=== PATIENT | female | born 2000 | race Native Hawaiian/Other Pacific Islander ===

== ENCOUNTER 2024-07-10 13:25 | Outpatient (REF) | payer MEDICAID, SELFPAY ==
[2024-07-10 18:13] LABS: Bacterial Vaginosis PCR NEGATIVE (Negative); Candida Group PCR DETECTED (Not Detect); Candida glab krusei PCR NOT DETECTED (Not Detect); Trichomonas vaginalis PCR NOT DETECTED (Not Detect)
[2024-07-11 02:44] LABS: CT PCR NOT DETECTED (Not Detect.); NG PCR NOT DETECTED (Not Detect.)
== END 2024-07-10 13:26 | disposition home or self-care (01) ==
LOC: HO.HHCLNP 13:25
PROVIDERS: Visit Provider Family Medicine
DX: N76.0 Acute vaginitis (principal); B96.89 Other specified bacterial agents as the cause of diseases classified elsewhere
CPT/HCPCS: 0352U; 87491; 87591

== ENCOUNTER 2024-07-16 16:09 | Outpatient (REF) | payer MEDICAID, SELFPAY | END 2024-07-16 16:10 | disposition home or self-care (01) | LOC: HO.LNP 16:09 | PROVIDERS: Visit Provider Advanced Practice Midwife | DX: Z13.89 Encounter for screening for other disorder (principal) ==

== ENCOUNTER 2024-08-05 14:59 | Outpatient (REF) | payer MEDICAID, SELFPAY ==
[2024-08-05 16:22] LABS: MANUAL DIFF FLAG NO
[2024-08-05 16:36] LABS: Basophils Absolute Auto 0.1 X10*3/uL (0.0-0.2); Basophils Percent Auto 0.7 % (0-2); Eosinophils Absolute Auto 0.2 X10*3/uL (0.0-0.4); Eosinophils Percent Auto 2.3 % (0-4); Hematocrit 39.8 % (37.0-47.0); Hemoglobin 13.2 g/dl (12.0-16.0); Imm Gran Abs Auto 0.03 X10*3/uL (0.00-0.03); Imm Gran Pct Auto 0.3 % (0.0-0.4); Lymphocytes Absolute Auto 2.8 X10*3/uL (1.2-4.9); Lymphocytes Percent Auto 31.8 % (20-40); Mean Corpuscular HGB Conc 33.2 g/dl (31.0-35.0); Mean Corpuscular Hemoglobin 27.8 pg (27.0-33.0); Mean Corpuscular Volume 83.8 fL (80.0-98.0); Mean Platelet Volume 11.3 fL (9.4-12.3); Monocytes Absolute Auto 0.7 X10*3/uL (0.1-1.2); Monocytes Percent Auto 7.7 % (2-11); Neutrophils Percent Auto 57.2 % (45-73); Platelet Count 265 X10*3/uL (160-400); Red Blood Count 4.75 X10*6/uL (4.20-5.50); Red Cell Distribution Width 14.2 % (11.0-16.0); White Blood Count 8.8 X10*3/uL (4.8-10.8)
[2024-08-05 16:45] LABS: Alanine Aminotransferase 23 U/L (0-31); Albumin Level 4.4 g/dL (3.5-5.0); Alkaline Phosphatase 95 U/L (39-117); Anion Gap 10 (12-20); Aspartate Amino Transferase 37 U/L (5-31); Bilirubin Total 0.3 mg/dL (0.0-1.0); Blood Urea Nitrogen 10 mg/dL (9-16); Carbon Dioxide 22 mmol/L (22-29); Chloride 108 mmol/L (96-108); Estimated Glomerular Filt Rate > 60; Glucose Random 101 mg/dL (60-115); Potassium 3.2 mmol/L (3.3-5.1); Sodium 137 mmol/L (135-145); Total Protein 7.7 g/dL (6.5-8.0)
[2024-08-05 16:54] LABS: Estimated Average Glucose 103 mg/dL; Hemoglobin A1C 110.2028 umol/L; Hemoglobin A1c % 5.2 % (<6.0); Total Hemoglobin (HGBA1C) 3310.8989 umol/L
[2024-08-06 08:27] LABS: HIV AB/AG Nonreactive (Nonreactive); HIV Num 1 0.08 S/CO (0.00-0.99); ~HepC Num1 0.14 S/CO (0.00-0.79); ~Hepatitis C Antibody Nonreactive (Nonreactive)
[2024-08-06 08:34] LABS: Syphilis Screen Nonreactive (Nonreactive)
== END 2024-08-05 15:00 | disposition home or self-care (01) ==
LOC: HO.HHCL 14:59
PROVIDERS: Advanced Practice Midwife; Visit Provider Nurse Practitioner Family
DX: Z00.00 Encounter for general adult medical examination without abnormal findings (principal); Z11.4 Encounter for screening for human immunodeficiency virus [HIV]; Z11.3 Encounter for screening for infections with a predominantly sexual mode of transmission
CPT/HCPCS: 36415; 80053; 83036; 85025; 86780; 86803; 87389

== ENCOUNTER 2024-11-03 13:55 | Outpatient (REF) | payer MEDICAID, SELFPAY ==
--- NOTE | ~2024-11-03 | XR_ITS ---
EXAMINATION: XR ANKLE, RIGHT CLINICAL INFORMATION: FELL COMPARISON: None available. TECHNIQUE: AP, lateral, and mortise views of the right ankle. FINDINGS: No fracture, dislocation, or suspicious bone lesion. Normal bone mineralization. Normal alignment. Joint spaces are preserved. Mortise is intact. The talar dome is normal. Subtalar joints are normal. Calcaneus is normal. There is a probable ankle joint effusion. Mild medial soft tissue swelling. XR/XR ankle RT min 3V IMPRESSION: 1. No fracture or dislocation. 2. Probable ankle joint effusion. Medial soft tissue swelling. Electronically signed by: Christian Rodriguez MD 11/03/2024 03:06 PM ALONDRA HESETR
--- OUTSIDE RECORDS SUMMARY | 2024-11-03 16:01 | XMS_ITS | Encounter Summary ---
Author Organization [employer] Address [address] [facility] 7[address] [place] [address] Care Team Providers Care Sports Agent Name Role Phone BoubacarYvonne del rosario RAJAN Primary Care Provider [phone] Reason for Visit * Reason Comments Fall Down the stairs arou nd 7am, has some swelling and painful to the touch Encounter Details Date Type Department Care Team ([facility] st Contact Info) Description 11/03/2024 2:30 PM EST Office Visit [facility] [address], [place] [phone] Inés Schaffer MD [address] [place], [place] [phone] Dietary counseling; Exercise counseling; Overweight; Right foot pain; Acute right ankle pain; Vaginal itching Social History Tobacco Use Types Packs/Day Years Used Date Smoking Tobacco: Never Smokeless Tobacco: Never Tobacco Cessation:Counseling Given: Not Answered Depression Answer Date Recorded Patient Health Questionnaire-9 Score 4 08/05/2024 Patient Health Questionnaire-9 Score 4 08/05/2024 Last PHQ-9: Questionnaire Data Not on file 1 10/05/2023 Housing Stability Answer Date Recorded What is your housing situation today? I do not have housing (Staying with others, in a hotel, in a retirement, living outside on the street, on a beach, in a car, or in a park 07/29/[address] you li ve. Do you have problems with any of the following? None of the above 07/29/2024 Food Insecurity Answer Date Recorded Within the past 12 months, y ou worried that your food would run out before you got money to buy more: Often true 07/29/2024 Within the past 12 months,th e food you bought just didn't last and you didn't have enough money to get more: Often true Transportation Answer Date Recorded In the past 12 months, has l ack of transportation kept you from medical appts, meetings, work or from getting things needed for daily living? Yes, it has kept me from medical appointments or getting medications. 07/29/2024 Utilities Answer Date Recorded In the past 12 months, has t he electric, gas, oil or water company threatened to shut off services in your home? No 07/29/2024 Depression Answer Date Recorded Patient Health Questionnaire-2 Score 1 08/05/2024 Internet Access Answer Date Recorded Internet Access Q1 Yes 07/29/2024 Internet Access Q2 Not on file 07/29/2024 Comments No Sex and Gender Information Value Date Recorded Sex Assigned at Female 05/19/2024 10:55 AM EDT Legal Sex Female 10:17 AM EDT Gender Identity Female 05/19/2024 10:55 AM EDT Sexual Orientation Straight 05/19/2024 10 :55 AM EDT documented as of this encounter Last Filed Vital Signs Vital Sign Reading Time Taken Comments Blood Pressure 103/59 11/03/2024 1:29 PM EST Pulse 92 11/03/2024 1:29 PM EST Temperature 36.4 ??C (97.5 ??F) 11/03/2024 1:29 PM ES T Respiratory Rate 18 11/03/2024 1:29 PM EST Oxygen Saturation 100% 11/03/2024 1:29 PM EST Inhaled Oxygen Concentration - - Weight 62.1 kg (137 lb) 11/03/2024 1:29 PM EST Height 150 cm (4' 11.06 ) 11/03/2024 1:29 PM EST Body Mass Index 27.62 11/03/2024 1:29 PM EST documented in this encounter Plan of Treatment Upcoming Encounters Date Type Department Care Team (Late st Contact Info) Description 11/06/2024 3:30 PM EST Clinical Support [facility] [address] [place] [address] Scheduled Orders Name Type Priority Associated Diagnoses Orde r Schedule XR Ankle 3+ Views Right Imaging Routine Acute right ankle pain Expected: 11/03/2024, Expires: 11/03/2025 documented as of this encounter Procedures Procedure Name Priority Date/Time Associated Diagnosis Comments POCT URINALYSIS DIPSTICK Routine 11/03/2024 1:59 PM EST Vaginal itching documented in this encounter Results * (ABNORMAL) POCT Urinalysis (11/03/2024 1:59 PM EST) Color, UA Yellow Clarity, UA Clear Glucose, UA Negative Bilirubin, UA Negative Ketones, UA Negative Spec Grav, UA 1.015 Blood, UA Positive(A) Negative, None Detected Comment:trace-lysed pH, UA 6.5 Protein, UA Negative Urobilinogen, UA 0.2 Leukocytes, UA Trace Negative, Rare, Trace Nitrite, UA Negative Negative, None Detected Appearance, UA clear QC Media Lot # [id number] Lot# Expiration Date Urine 11/03/2024 1:59 PM EST Inés Schaffer MD POINT OF CARE TEST ENTER/EDIT ORDERABLES Final Result documented in this encounter Visit Diagnoses Diagnosis Dietary counseling Dietary surveillance and counseling Exercise counseling Overweight Right foot pain Pain in soft tissues of limb Acute right ankle pain Vaginal itching Pruritus of genital organs documented in this encounter Additional Health Concerns Assessment Noted Time PHQ-9 Depression Total Score: 4 08/05/20 2:52 PM EST documented as of this encounter Care Teams Sports Agent Relationship Specialty Start Date End Date Yvonne Tovar NP [address] [place] [phone] PCP - General Family Medicine 08/05/24 documented as of this encounter
--- OUTSIDE RECORDS SUMMARY | 2024-11-03 16:01 | XMS_ITS | Clinical Summary ---
Author Organization [employer] Address [address] [place] [address] 7[address] [place] [address] Care Team Providers Care Certified Coder Name Role Phone BoubacarYvonne del rosario RAJAN Primary Care Provider [phone] Allergies No known active allergies Medications medroxyPROGESTERo ne (Depo-Provera) 150 MG/ML injectionIndicati ons:Encounter for Depo-Provera contraception Inject 1 mL (150 mg) into the muscle every 3 (three) months. 1 mL 3 07/16/20 24 025 Active fluconazole (Diflucan) 150 MG tablet Take 1 tablet (150 mg) by mouth 1 (one) time per week for 14 days. 2 tablet 11/03/19 25 025 Active ibuprofen 800 MG tablet Take 1 tablet (800 mg) by mouth every 8 (eight) hours if needed for mild pain for up to 10 days. 30 tablet 11/03/19 25 025 Active fluconazole (Diflucan) 150 MG tablet Take 1 tablet (150 mg) by mouth 1 (one) time per week for 14 days. 2 tablet 11/03/19 25 025 Discontinued Active Problems Problem Noted Date Diagnosed Date Right foot pain 11/03/2024 Healthcare maintenance 08/05/2024 Assessment & Plan (08/05/2024 8:28 PM EST): Healthy 24 year old without any acute complaints Continue depo Pap scheduled for 2023 Anticipatory guidance reviewed Immunizations offered, pt declines Encounter for Depo-Provera contraception 024 Assessment & Plan (07/16/2024 10:51 AM EST): Patient happy with method and would like to continue Urine hcg negative today Educated patient on benefits and risks including risk of osteoporosis and meningioma with fci use. As well as side effects such as weight gain and period irregularity. Pt due for next shot in 3 months (10/15/24 will be 13 weeks) Encounter for screening exam ination for sexually transmitted disease 07/16/2024 Assessment & Plan (07/16/2024 10:52 AM EST): Pt will perform self swabs today for G/CT Pt will complete ordered bloodwork Encounters Date Type Department Care Team Description 11/03/2024 2:30 PM EST Office Visit [address] [address] Inés Schaffer MD Dietary counseling; Exercise counseling; Overweight; Right foot pain; Acute right ankle pain; Vaginal itching 11/03/[address] [address] Lizeth Jones RN 11/03/2024 Orders Only [address] [address] Inés Schaffer MD 10/03/[address] [address] Yvonne Tovar NP No Show 08/06/[address] [address] Mckinley Rinaldi [place] Lab Results 08/05/2024 2:00 PM EST Office Visit [address] [address] Yvonne Tovar NP Healthcare maintenance (Primary Dx) 08/04/[address] [address] Livier Santos MA Chart Prep from Last 3 Months Social History Tobacco Use Types Packs/Day Years [...] with others, in a hotel, in a [facility], living outside on the street, on a [...] Orientation Straight 05/19/2024 10 :55 AM EDT Last Filed Vital Signs Vital Sign Reading [...] Mass Index 27.62 11/03/2024 1:29 PM EST Plan of Treatment Upcoming Encounters Date Type Department Care Team (Late st Contact Info) Description 11/06/2024 3:30 PM EST Clinical Support [address] [address] Health Maintenance Due Date Last Done Comments HPV Vaccines (1 - 3-dose series) 01/14/2015 DTaP/Tdap/Td Vaccines (1 - Tdap) 01/14/2019 Hepatitis B Vaccines (1 of 3 - 19+ 3-dose series) 01/14/2019 Pap Smear 01/14/2021 COVID-19 Vaccine (1 - 2023-2 5 season) 2024 Influenza Vaccine (#1) 2024 Family Planning (PISQ) 07/16/2025 07/16/2024 SDOH Screening 07/29/2025 07/29/2024 Alcohol/Substance Use Screening 08/05/2025 08/05/2024 Depression Screening 08/05/2025 08/05/2024, 08/05/2024 Tobacco Screening 11/03/2025 11/03/2024 Zoster Vaccines (1 of 2) 01/14/2050 RSV Patients and Patients Aged 60 years or older (1 - 1-dose 75+ series) 01/14/2075 HIV Screening Completed 08/05/2024 Hepatitis C Screening Completed 08/05/2024 HIB Vaccines Aged Out No longer eligi ble based on patient's age to complete this topic Hepatitis A Vaccines Aged Out No long er eligible based on patient's age to complete this topic IPV Vaccines Aged Out No longer eligi ble based on patient's age to complete this topic Meningococcal Vaccine Aged Out No jose gold eligible based on patient's age to complete this topic Pneumococcal Vaccine: Pediatrics (0 to 5 Years) and At-Risk Patients (6 to 49) Years) Aged Out No longer eligible b ased on patient's age to complete this topic RSV under 20 months Aged Out No longe r eligible based on patient's age to complete this topic Rotavirus Vaccines Aged Out No longer eligible based on patient's age to complete this topic Procedures Procedure Name Priority Date/Time Associated Diagnosis Comments POCT URINALYSIS DIPSTICK Routine 11/03/2024 1:59 PM EST Vaginal itching XR ANKLE 3+ VIEWS RIGHT Routine 11/03/2024 1:57 PM EST CBC WITH AUTO DIFFERENTIAL Routine 08/05/2024 3:01 PM EST Healthcare maintenance HEMOGLOBIN A1C Routine 08/05/2024 3:01 PM EST Healthcare maintenance COMPREHENSIVE METABOLIC PANEL Routine 08/05/2024 3:01 PM EST Healthcare maintenance HEPATITIS C AB W/REFL TO HCV RNA, QN, PCR Routine 08/05/2024 3:01 PM EST Encounter for screening examination for sexually transmitted disease SYPHILIS SCREEN Routine 08/05/2024 3:01 PM EST Encounter for screening examination for sexually transmitted disease HIV 1/2 ANTIGEN/ANTIBODY, FOURTH GENERATION W/RFL Routine 08/05/2024 3:01 PM EST Encounter for screening examination for sexually transmitted disease from Last 3 Months Results * (ABNORMAL) POCT Urinalysis (11/03/2024 1:59 [...] Media Lot # [id number] Lot# Expiration Date [id number] Urine 11/03/2024 1:59 PM EST Inés Schaffer MD POINT OF CARE TEST ENTER/EDIT ORDERABLES Final Result * XR Ankle 3+ Views Right (11/03/2024 1:57 PM EST) Anatomical Region Laterality Modality Lower Extremities, Ankle Right Radiogr aphic Imaging 11/03/2024 1:57 PM EST Narrative 11/03/2024 3:09 PM EST ?[facility] ?[address] ?[place] [address] ?XRay Report ? Signed ? Patient: Yautibug Suad,Sheila ?MR#: [id number] ?? [id number] ? : 2000 ?Acct:[id number] ? Age/Sex: 24 / F ?ADM Date: 11/03/24 ? Loc: HO.HHCX ? Attending Dr: Inés Schaffer MD ? Ordering Physician: Inés Schaffer ?? Date of Service: 11/03/24 ?? Procedure(s): XR ankle RT min 3V ?? Accession Number(s): [id number] ? cc: Inés Schaffer ? EXAMINATION: ?? XR ANKLE, RIGHT ? CLINICAL INFORMATION: ?? FELL ? COMPARISON: ?? None available. ? TECHNIQUE: ?? AP, lateral, and mortise views of the right ankle. ? FINDINGS: ?? No fracture, dislocation, or suspicious bone lesion. Normal bone ?? mineralization. ?? Normal alignment. ?? Joint spaces are preserved. Mortise is intact. The talar dome is normal. ?? Subtalar joints are normal. Calcaneus is normal. ? There is a probable ankle joint effusion. ?? Mild medial soft tissue swelling. ? XR/XR ankle RT min 3V ?? IMPRESSION: ?? 1. No fracture or dislocation. ?? 2. Probable ankle joint effusion. Medial soft tissue swelling. ? Electronically signed by: ??Christian Rodriguez MD ??11/03/2024 03:06 PM EST RP ?? Workstation: [id number] ? Dictated By: ?Christian Rodriguez MD ? Signed By: ?<Electronically signed by Christian Rodriguez MD in OV> ?11/03/24 1506 ? DD/ 1357 ? TD/TT: 11/03/24 1400 ? Rug Clipper: ? Procedure Note Miracle Williamson - 11/03/[address] [address] XRay Report Signed Patient: Grabiel Arroyochai#: [id number] : 2000Acct:[id number] Age/Sex: 24 / M Date: 11/03/24 Loc: HO.HHCX Attending Dr: Inés Schaffer MD Ordering Physician: Inés Schaffer Date of Service: 11/03/24 Procedure(s): XR ankle RT min 3V Accession Number(s): [id number] cc: Inés Schaffer EXAMINATION: XR ANKLE, RIGHT CLINICAL INFORMATION: FELL COMPARISON: None available. TECHNIQUE: AP, lateral, and mortise views of the right ankle. FINDINGS: No fracture, dislocation, or suspicious bone lesion. Normal bone mineralization. Normal alignment. Joint spaces are preserved. Mortise is intact. The talar dome is normal. Subtalar joints are normal. Calcaneus is normal. There is a probable ankle joint effusion. Mild medial soft tissue swelling. XR/XR ankle RT min 3V IMPRESSION: 1. No fracture or dislocation. 2. Probable ankle joint effusion. Medial soft tissue swelling. Electronically signed by: Christian Rodriguez MD 11/03/2024 03:06 PM EST Dictated By: hCristian Rodriguez MD Signed By: <Electronically signed by Christian Rodriguez MD in OV> 11/03/24 1506 DD/ 1357 TD/TT: 11/03/24 1400 Rug Clipper: Inés Schaffer MD IMG XR PROCEDURES Final Result * Syphilis Screen (08/05/2024 3:01 PM EST) Pathologist [facility] Syphilis Screen Nonreactive Nonreactive [facility] Blood Venous blood specimen / Unknown 08/05/2024 3:01 PM EST 08/05/2024 4:09 PM EST Stephanie ASHLEY LAB BLOOD ORDERABLES Dana l Result [facility] [address] [place] [phone] * CBC auto differential (08/05/2024 3:01 PM EST) White Blood Count 8.8 4.8 - 10.8 X10*3/uL [facility] Red Blood Count 4.75 4.20 - 5.50 X10*6/uL [facility] Hemoglobin 13.2 12.0 - 16.0 g/dl [facility] Hematocrit 39.8 37.0 - 47.0 % [facility] Mean Corpuscular Volume 83.8 80.0 - 98.0 fL [facility] Mean Corpuscular Hemoglobin 27.8 27.0 - 33.0 pg [facility] Mean Corpuscular HGB Conc 33.2 31.0 - 35.0 g/dl [facility] Red Cell Distribution Width 14.2 11.0 - 16.0 % [facility] Platelet Count 265 160 - 400 X10*3/uL [facility] Mean Platelet Volume 11.3 9.4 - 12.3 fL [facility] Neutrophils Percent Auto 57.2 45 - 73 % [facility] Imm Gran Pct Auto 0.3 0.0 - 0.4 % [facility] Lymphocytes Percent Auto 31.8 20 - 40 % [facility] Monocytes Percent Auto 7.7 2 - 11 % [facility] Eosinophils Percent Auto 2.3 0 - 4 % [facility] Basophils Percent Auto 0.7 0 - 2 % [facility] NRBC Pct Auto 0.0 0.0 - 0.2 /100WBC [facility] Neutrophils Absolute Auto 5.0 2.0 - 8.3 x10*3/uL [facility] Imm Gran Abs Auto 0.03 0.00 - 0.03 X10*3/uL [facility] Lymphocytes Absolute Auto 2.8 1.2 - 4.9 X10*3/uL [facility] Monocytes Absolute Auto 0.7 0.1 - 1.2 X10*3/uL [facility] Eosinophils Absolute Auto 0.2 0.0 - 0.4 X10*3/uL [facility] Basophils Absolute Auto 0.1 0.0 - 0.2 X10*3/uL [facility] NRBC Abs Auto 0.000 0.0 - 0.012 X10*3/uL [facility] Blood Venous blood specimen / Unknown 08/05/2024 3:01 PM EST 08/05/2024 4:09 PM EST us Yvonne Tovar MANAGER BABY LAB BLOOD ORDERABLES Final Resul t Performing Organization Address City/[facility]/ZIP Co de Phone Number [facility] [address] [place] [phone] * Hepatitis C Antibody with Reflex to HCV, RNA, Quantitative, Real-Time PCR (08/05/2024 3:01 PM EST) Hepatitis C Antibody Nonreactive Nonreactive [facility] Comment:Antibodies to HCV no t detected; does not exclude early acuteHCV infection. Blood Venous blood specimen / Unknown 08/05/2024 3:01 PM EST 08/05/2024 4:09 PM EST us Stephanie Ellsworth [facility] LAB BLOOD ORDERABLES Dana l Result Performing Organization Address [facility]/ZIP Co de Phone Number [facility] [address] [place] [phone] * HIV-1/2 Antigen and Antibodies, Fourth Generation, with Reflexes (08/05/2024 3:01 PM EST) HIV AB/AG Nonreactive Nonreactive [facility] Comment:HIV-1 p24 Ag and/or HIV-1/HIV-2 Ab not detected.A test result that is nonreactive does not exclude thepossibility of exposure to or infection with HIV-1 and/orHIV-2. Nonreactive results in this assay for individualswith prior exposure to HIV-1 and/or HIV-2 may be due toantigen and antibody levels that are below the limit ofdetection of this assay.The [employer] HIV Ag/Ab Combo assay result andsupplemental assay results should be interpreted inconjunction with the patient's clinical presentation,history and other laboratory results. If the results areinconsistent with clinical evidence, additional testing issuggested to confirm the result. Blood Venous blood specimen / Unknown 08/05/2024 3:01 PM EST 08/05/2024 4:09 PM EST us Stephanie Mckeonpaulina CNM LAB BLOOD ORDERABLES Dana l Result Performing Organization Address [facility] Co de Phone Number [facility] [address] [place] [phone] * Hemoglobin A1c (08/05/2024 3:01 PM EST) Hemoglobin A1c 5.2 <6.0 % [facility] Comment:Hemoglobin A1C Refer ence Range Adults: 4.8 - 6.0 % Non diabetic: < 6.0 % Goal: < 7.0 %Additional Action Suggested: > 8.0 %Note: Hemoglobin A1c results are invalid for patients with abnormal amounts of HbF. Blood transfusions may impact the HbA1c concentration in the patient sample. Estimated Average Glucose 103 mg/dL [facility] Comment:eAG = Estimated ave rage glucose which is %A1C expressed asaverage glucose, using the formula of the H5A-QdpwekhWimvdxh Glucose study (ADAG), Diabetes Care, Vol.31,#8,Apr. 2007 Blood Venous blood specimen / Unknown 08/05/2024 3:01 PM EST 08/05/2024 4:09 PM EST us Yvonne Tovar MANAGER BABY LAB BLOOD ORDERABLES Final Resul t Performing Organization Address [facility] Co de Phone Number [facility] [address] [place] [phone] * (ABNORMAL) Comprehensive Metabolic Panel (08/05/2024 3:01 PM EST) Sodium 137 135 - 145 mmol/L [facility] Potassium 3.2(L) 3.3 - 5.1 mmol/L [facility] Chloride 108 96 - 108 mmol/L [facility] Carbon Dioxide 22 22 - 29 mmol/L [facility] Anion Gap 10(L) 12 - 20 [facility] Urea Nitrogen (BUN) 10 9 - 16 mg/dL [facility] Creatinine, Serum 0.65 0.5 - 1.4 mg/dL [facility] Estimated Glomerular Filt Rate >60 [facility] Comment:Chronic Kidney Disea se: Estimated GFR < 60 mL/min/1.19r5Sdcsig Kidney Disease: Estimated GFR < 15 mL/min/1.73m2 Glucose 101 60 - 115 mg/dL [facility] Calcium 9.0 8.4 - 10.2 mg/dL [facility] Bilirubin, Total 0.3 0.0 - 1.0 mg/dL [facility] Aspartate Amino Transferase 37(H) 5 - 31 U/L [facility] Alanine Aminotransferase 23 0 - 31 U/L [facility] Total Protein 7.7 6.5 - 8.0 g/dL [facility] Albumin Level 4.4 3.5 - 5.0 g/dL [facility] Alkaline Phosphatase 95 39 - 117 U/L [facility] Blood Venous blood specimen / Unknown 08/05/2024 3:01 PM EST 08/05/2024 4:09 PM EST us Yvonne Tovar NP LAB BLOOD ORDERABLES Final Resul t [facility] [address] [place] [address] [phone] from Last 3 Months Insurance [employer] FULL Care Teams Certified Coder Relationship Specialty Start Date End Date Yvonne Tovar NP [address] [place] [phone] PCP - General Family Medicine 08/05/24
--- OUTSIDE RECORDS SUMMARY | 2024-11-03 16:01 | XMS_ITS | Encounter Summary ---
Author Organization [employer] Address [address] [facility] 7[address] [place] [address] Care Team Providers Care Flanger Name Role Phone BoubacarYvonne del rsoario RAJAN Primary Care Provider [phone] Encounter Details Date Type Department Care Team (Late st Contact Info) Description 11/03/2024 Orders Only [facility] [address], [place] [phone] Inés Schaffer MD [address] [place], [place] [phone] Social History Tobacco Use Types Packs/Day Years Used Date Smoking Tobacco: Never Smokeless Tobacco: Never Depression Answer Date Recorded Patient Health Questionnaire-9 Score 4 08/05/2024 Patient Health Questionnaire-9 Score 4 08/05/2024 Last PHQ-9: Questionnaire Data Not on file 1 10/05/2023 Housing Stability Answer Date Recorded What is your housing situation today? I do not have housing (Staying with others, in a hotel, in a correction, living outside on the street, on a [...] AM EDT documented as of this encounter Plan of Treatment Upcoming Encounters Date Type Department Care Team (Late st Contact Info) Description 11/06/2024 3:30 PM EST Clinical Support [facility] [address] [place] [address] documented as of this encounter Procedures Procedure Name Priority Date/Time Associated Diagnosis Comments XR ANKLE 3+ VIEWS RIGHT Routine 11/03/2024 1:57 PM EST documented in this encounter Results * XR Ankle 3+ Views Right (11/03/2024 1:57 PM EST) Anatomical Region Laterality Modality Lower Extremities, Ankle Right Radiogr aphic Imaging 11/03/2024 1:57 PM EST Narrative 11/03/2024 3:09 PM EST ?[facility] ?[address] [facility] ?[place] [address] ?XRay Report ? Signed ? Patient: Yautibug Suad,Sheila ?MR#: [id number] ?? [id number] ? : 2000 ?Acct:[id number] ? Age/Sex: 24 / F ?ADM Date: 02/24/25 ? Loc: HO.HHCX ? Attending Dr: Inés Schaffer MD ? Ordering Physician: Inés Schaffer ?? Date of Service: 11/03/24 ?? Procedure(s): XR ankle RT min 3V ?? Accession Number(s): [id number] ? cc: Inés Schaffer ? EXAMINATION: ?? [...] Rodriguez MD ??11/03/2024 03:06 PM EST RP ? Dictated By: ?Christian Rodriguez MD ? Signed By: ?<Electronically signed by Christian Rodriguez MD in OV> ?11/03/24 1506 ? DD/ 1357 ? TD/TT: 11/03/24 1400 ? Mortgage Consultant: ? Procedure Note [place], Image - 11/03/2024 [place] [address] XRay Report Signed Patient: Chantelle Arroyo#: [id number] : 2000Acct:[id number] Age/Sex: 24 M Date: 11/03/24 Loc: HO.HHCX Attending Dr: Inés Schaffer MD Ordering Physician: Inés Schaffer Date of Service: 11/03/24 Procedure(s): XR ankle RT min 3V Accession Number(s): [id number] cc: Inés Schaffer EXAMINATION: XR ANKLE, RIGHT [...] Christian Rodriguez MD 11/03/2024 03:06 PM EST RP Dictated By: Christian Rodriguez MD Signed By: <Electronically signed by Christian Rodriguez MD in OV> 11/03/24 1506 DD/ 1357 TD/TT: 11/03/24 1400 Mortgage Consultant: Inés Schaffer MD IMG XR PROCEDURES Final Result documented in this encounter Visit Diagnoses Not on filedocumented in this encounter Additional Health Concerns Assessment Noted Time PHQ-9 Depression Total Score: 4 08/05/20 24 2:52 PM EST documented as of this encounter Care Teams Flanger Relationship Specialty Start Date End Date Yvonne Tovar NP [address] [place] [phone] PCP - General Family Medicine 08/05/24 documented as of this encounter
--- OUTSIDE RECORDS SUMMARY | 2024-11-03 16:01 | XMS_ITS | Encounter Summary ---
Author Organization [email or web address] Address [address] [place] [address] Care Team Providers Care Engine Repair Supervisor Name Role Phone BoubacarYvonne del rosario RAJAN Primary Care Provider [phone] Encounter Details Date Type Department Care Team (Late st Contact Info) Description 11/03/2024 Telephone [facility] [address] [place] [address] [phone] Lizeth Jones RN Social History Tobacco Use Types Packs/Day Years [...] with others, in a hotel, in a skilled nursing, living outside on the street, on a [...] AM EDT documented as of this encounter Miscellaneous Notes * Telephone Encounter - Lizeth Jones RN - 11/03/2024 3:17 PM EST T walked in requesting an appt to for depo injection. Last administered on 07/16/24 depo window 10/02-10/30. Pt had an appt scheduled on 10/03/24 that they no showed. Appt rescheduled to 11/04/24 with team nurse and message sent to PCP for standing order to be placed. documented in this encounter Plan of Treatment Upcoming Encounters Date Type Department Care Team (Late st Contact Info) Description 11/06/2024 3:30 PM EST Clinical Support [facility] [address] [place] [address] documented as of this encounter Visit Diagnoses Diagnosis Encounter for Depo-Provera contraception Surveillance of other previously prescribed contraceptive method documented in this encounter Additional Health Concerns Assessment Noted Time PHQ-9 Depression Total Score: 4 08/05/20 24 2:52 PM EST documented as of this encounter Care Teams Engine Repair Supervisor Relationship Specialty Start Date End Date Yvonne Tovar NP [address] [place] [address] PCP - General Family Medicine 08/05/24 documented as of this encounter
== END 2024-11-03 13:56 | disposition home or self-care (01) ==
LOC: HO.HHCX 13:55
PROVIDERS: Visit Provider General Practice
DX: M25.571 Pain in right ankle and joints of right foot (principal)
CPT/HCPCS: 73610

== ENCOUNTER → 2024-11-03 13:57 | Outpatient (BNV) | payer MEDICAID, SELFPAY | PROVIDERS: Visit Provider Radiology Diagnostic Radiology | DX: M25.571 Pain in right ankle and joints of right foot (principal) | CPT/HCPCS: 73610 ==

== ENCOUNTER 2025-03-30 11:34 | Outpatient (REF) | payer MEDICAID, SELFPAY ==
--- OUTSIDE RECORDS SUMMARY | 2025-03-31 12:50 | XMS_ITS | Clinical Summary ---
Author Organization [employer] Address [address] [place] [address] 7t [place] [address] Care Team Providers Care Energy Projects Lead Name Role Phone BoubacarYvonne del rosario RAJAN Primary Care Provider [phone] Allergies No known active allergies Medications medroxyPROGESTERon e (Depo-Provera) 150 MG/ML injectionIndicatio ns:Encounter for Depo-Provera contraception Inject 1 mL (150 mg) into the muscle every 3 (three) months. 1 mL 3 4 07/16/20 Active Hospital, Clinic, or Other Facility Administered Medication Ordered Dose Route Frequency Start Date End Date Status medroxyPROGESTERone (Depo-Provera) injection 150 mgIndications:Encounte r for Depo-Provera contraception 150 mg IM Every 3 months 11/04/2024 10/30/2025 Active medroxyPROGESTERone (Depo-Provera) injection 150 mgIndications:Encounte r for Depo-Provera contraception 150 mg IM Every 3 months 11/04/2024 01/28/2026 Active medroxyPROGESTERone (Depo-Provera) injection 150 mgIndications:Encounte r for Depo-Provera contraception 150 mg IM Once 03/30/2025 03/30/2025 Ended Active Problems Problem Noted Date Diagnosed Date Dysuria 03/30/2025 Assessment & Plan (03/30/2025 8:06 PM EDT): Dysuria has resolved, gc/chl ordered, bv panel ordered Pap offered today pt declines, opts for scheduling at future date Skin change 12/31/2024 AN (acanthosis nigricans) 12/31/2024 Assessment & Plan (01/29/2025 11:49 AM EDT): Reviewed findings, encouraged lifestyle management and screening pt was educated regarding s/s of diabetes Skin lesion of face 12/07/2024 Acute right ankle pain 11/05/2024 Assessment & Plan (11/05/2024 10:28 AM EST): Xray consistent with ankle sprain Rest, ice during acute phase, wrap with oscar wrap and take Motrin every 8 hours prn Note given for work excuse for next two days Healthcare maintenance 08/05/2024 Assessment & Plan (08/05/2024 8:28 PM EST): Healthy 24 year old without any acute complaints Continue depo Pap scheduled for 2023 Anticipatory guidance reviewed Immunizations offered, pt declines Encounter for Depo-Provera contraception Assessment & Plan (03/30/2025 8:06 PM EDT): Depo administered Assessment & Plan (07/16/2024 10:51 AM EST): Patient happy with method and would like to continue Urine hcg negative today Educated patient on benefits and risks including risk of osteoporosis and meningioma with longterm use. As well as side effects such as weight gain and period irregularity. Pt due for next shot in 3 months (10/15/24 will be 13 weeks) Encounter for screening exam ination for sexually transmitted disease 07/16/2024 Assessment & Plan (07/16/2024 10:52 AM EST): Pt will perform self swabs today for G/CT Pt will complete ordered bloodwork Resolved Problems Problem Noted Date Diagnosed Date Resolved Date Right foot pain 11/03/2024 11/05/2024 Encounters Date Type Department Care Team Description 03/30/2025 3:15 PM EDT Office Visit [facility] [address] [place] [phone] Yvonne Tovar NP Dysuria (Primary Dx); Encounter for Depo-Provera contraception; Vaginal discharge 03/30/2025 Travel 03/27/2025 Telephone [facility] [address] [place] [address] Livier Santos MA Chart Prep 03/04/2025 Telephone [facility] [address] [place] [address] Lizeth Jones RN 12/31/2024 10:15 AM EDT Office Visit [facility] [address] [place] [address] Yvonne Tovar NP Skin change (Primary Dx); AN (acanthosis nigricans); Encounter for Depo-Provera contraception 12/31/2024 Travel from Last 3 Months Social History Tobacco [...] with others, in a hotel, in a fpc, living outside on the street, on a [...] Sign Reading Time Taken Comments Blood Pressure 98/70 03/30/2025 3:21 PM EDT Pulse 74 03/30/2025 3:21 PM EDT Temperature 35.9 C (96.6 F) 03/30/2025 3:21 PM EDT Respiratory Rate 14 03/30/2025 3:21 PM EDT Oxygen Saturation 97% 03/30/2025 3:21 PM EDT Inhaled Oxygen Concentration - - Weight 61.4 kg (135 lb 6.4 oz) 03/30/2025 3:21 P M EDT Height 149.9 cm (4' 11 ) 03/30/2025 3:21 PM EDT Body Mass Index 27.35 03/30/2025 3:21 PM EDT Plan of Treatment Upcoming Encounters Date Type Department Care Team (Late st Contact Info) Description 06/16/2025 11:30 AM EDT Clinical Support [facility] [address] [place] [phone] Health Maintenance Due Date Last Done Comments HPV Vaccines (1 - 3-dose series) 01/14/2015 DTaP/Tdap/Td Vaccines (1 - Tdap) 01/14/2019 Hepatitis B Vaccines (1 of 3 - 19+ 3-dose series) 01/14/2019 Pap Smear 01/14/2021 COVID-19 Vaccine (1 - 2023-2 5 season) 2024 Influenza Vaccine (#1) 2025 Family Planning (PISQ) 07/16/2025 07/16/2024 SDOH Screening 07/29/2025 07/29/2024 Alcohol/Substance Use Screening 08/05/2025 08/05/2024 Depression Screening 08/05/2025 08/05/2024, 08/05/2024 Disability Screening 03/30/2026 03/30/2025 Tobacco Screening 03/30/2026 03/30/2025 Zoster Vaccines (1 of 2) 01/14/2050 RSV [...] patient's age to complete this topic Meningococcal B Vaccine Aged Out No l onger eligible based on patient's age to complete this topic Meningococcal Vaccine Aged Out No jose gold eligible based on patient's age to complete this topic Pneumococcal Vaccine: Pediatrics (0 to 5 Years) and At-Risk Patients (6 to 49) Years Aged Out No longer eligible b ased on patient's age to complete this topic RSV under 20 months Aged Out No longe r eligible based on patient's age to complete this topic Rotavirus Vaccines Aged Out No longer eligible based on patient's age to complete this topic Procedures Procedure Name Priority Date/Time Associated Diagnosis Comments POCT , URINE Routine 03/30/2025 4:21 PM EDT Encounter for Depo-Provera contraception POCT , URINE Routine 12/31/2024 11:36 AM EDT Encounter for Depo-Provera contraception HEPATITIS C AB W/REFL TO HCV RNA, QN, PCR Routine 08/05/2024 3:01 PM EST Encounter for screening examination for sexually transmitted disease HIV 1/2 ANTIGEN/ANTIBODY, FOURTH GENERATION W/RFL Routine 08/05/2024 3:01 PM EST Encounter for screening examination for sexually transmitted disease from Last 3 Months or Most Recently Relevant to Health Maintenance Results * POCT Urine (03/30/2025 4:21 PM EDT) Only the most recent of2 resultswithin the time period is included. Preg Test, Ur Negative Negative, Indeterminate, None Detected, Invalid, Specimen unsatisfactory for evaluation, Weakly Positive, 2+ QC Media Lot # [id number] Lot# Expiration Date [id number] Urine 03/30/2025 4:21 PM EDT Yvonne Tovar NP POINT OF CARE TEST ENTER/EDIT OR DERABLES Final Result * Hepatitis C Antibody with Reflex to HCV, RNA, Quantitative, Real-Time PCR (08/05/2024 3:01 PM EST) Hepatitis C Antibody Nonreactive Nonreactive [facility] Comment:Antibodies to HCV no t detected; does not exclude early acuteHCV infection. Blood Venous blood specimen / Unknown 08/05/2024 3:01 PM EST 08/05/2024 4:09 PM EST Stephanie ASHLEY LAB BLOOD ORDERABLES Dana l Result [facility] [address] [place] [phone] * HIV-1/2 Antigen and Antibodies, Fourth Generation, with Reflexes (08/05/2024 3:01 PM EST) HIV AB/AG Nonreactive Nonreactive [facility] Comment:HIV-1 p24 Ag and/or HIV-1/HIV-2 Ab not detected.A test result that is nonreactive does not exclude thepossibility of exposure to or infection with HIV-1 and/orHIV-2. Nonreactive results in this assay for individualswith prior exposure to HIV-1 and/or HIV-2 may be due toantigen and antibody levels that are below the limit ofdetection of this assay.The [employer] HIV Ag/Ab Combo assay result andsupplemental assay results should be interpreted inconjunction with the patient's clinical presentation,history and other laboratory results. If the results areinconsistent with clinical evidence, additional testing issuggested to confirm the result. Blood Venous blood specimen / Unknown 08/05/2024 3:01 PM EST 08/05/2024 4:09 PM EST Stephanie ASHLEYM LAB BLOOD ORDERABLES Dana l Result [facility] [address] [place] [address] [phone] from Last 3 Months or Most Recently Relevant to Health Maintenance Insurance [facility] [employer] F[employer] Care Teams Energy Projects Lead Relationship Specialty Start Date End Date Yvonne Tovar NP [address] [place] [phone] PCP - General Family Medicine 08/05/24
[2025-03-31 14:03] LABS: Bacterial Vaginosis PCR NEGATIVE (Negative); CT PCR Urine NOT DETECTED (Not Detect.); Candida Group PCR NOT DETECTED (Not Detect); Candida glab krusei PCR NOT DETECTED (Not Detect); NG PCR Urine NOT DETECTED (Not Detect.); Trichomonas vaginalis PCR NOT DETECTED (Not Detect)
== END 2025-03-30 11:35 | disposition home or self-care (01) ==
LOC: HO.HHCLNP 11:34
PROVIDERS: Visit Provider Nurse Practitioner Family
DX: N89.8 Other specified noninflammatory disorders of vagina (principal); R30.0 Dysuria
CPT/HCPCS: 81515; 87491; 87591

== ENCOUNTER 2025-06-09 13:15 | Outpatient (REF) | payer MEDICAID, SELFPAY ==
--- OUTSIDE RECORDS SUMMARY | 2025-06-09 14:35 | XMS_ITS | Clinical Summary ---
Author Organization [employer] Address [address] [place] [address] [address] [place] [address] Care Team Providers Care Craniologist Name Role Phone BoubacarYvonne del rosario RAJAN Primary Care Provider [phone] Allergies No known active allergies Medications medroxyPROGESTERon e (Depo-Provera) 150 MG/ML injectionIndicatio ns:Encounter for Depo-Provera contraception Inject 1 mL (150 mg) into the muscle every 3 (three) months. 1 mL 3 4 07/16/20 25 Active omeprazole (PriLOSEC) [address] capsuleIndications :Non-cardiac chest pain,Dark stools,Gastroesoph ageal reflux disease, unspecified whether esophagitis present Take 1 capsule (40 mg) by mouth before breakfast. Do not crush or chew. 30 capsule 1 5 05/05/20 26 Active Hospital, Clinic, or Other Facility Administered Medication Ordered Dose Route Frequency Start Date End Date Status medroxyPROGESTERone (Depo-Provera) injection 150 mgIndications:Encounte r for Depo-Provera contraception 150 mg IM Every 3 months 11/04/2024 10/30/2025 Active medroxyPROGESTERone (Depo-Provera) injection 150 mgIndications:Encounte r for Depo-Provera contraception 150 mg IM Every 3 months 11/04/2024 01/28/2026 Active Active Problems Problem Noted Date Diagnosed Date [...] for Depo-Provera contraception 024 Assessment & Plan (03/30/2025 8:06 PM EDT): Depo administered Assessment & Plan (07/16/2024 10:51 AM EST): Patient happy with method and would like to continue Urine hcg negative today Educated patient on benefits and risks including risk of osteoporosis and meningioma with detention use. As well as side effects such [...] Encounters Date Type Department Care Team Description 05/05/2025 1:40 PM EDT Office Visit [facility] [address] [address] Name, MD Hugh Gastroesophageal reflux disease, unspecified whether esophagitis present (Primary Dx); Non-cardiac chest pain; Dark stools 05/05/2025 Travel 04/03/2025 Results Follow-Up [facility] [address] [place] [address] Tamra Madsen RN Chlamydia/N. Gonorrhoeae, PCR, Urine, Bacterial Vaginosis Panel, POCT Urine 03/30/2025 3:15 PM EDT Office Visit [facility] [address] [place] [address] Yvonne Tovar NP Dysuria (Primary Dx); Encounter for Depo-Provera contraception; Vaginal discharge 03/30/2025 Travel 03/27/2025 Telephone [facility] [address] [place] [address] Livier Santos MA Chart Prep from Last 3 Months Social History Tobacco Use Types Packs/Day Years Used Date Smoking Tobacco: Never Smokeless Tobacco: Never Tobacco Cessation:Counseling Given: Not Answered Alcohol Use Standard Drinks/Week Comments Never 0 (1 standard drink = 0.6 oz pur e alcohol) Depression Answer Date Recorded Patient Health Questionnaire-9 Score 4 08/05/2024 Patient Health Questionnaire-9 Score 4 08/05/2024 Last PHQ-9: Questionnaire Data Not on file 1 10/05/2023 Housing Stability Answer Date Recorded What is your housing situation today? I do not have housing (Staying with others, in a hotel, in a nursing home, living outside on the street, on a [...] Sign Reading Time Taken Comments Blood Pressure 126/72 05/05/2025 1:26 PM EDT Pulse 73 05/05/2025 1:26 PM EDT Temperature 36.7 C (98 F) 05/05/2025 1:26 PM EDT Respiratory Rate 14 05/05/2025 1:26 PM EDT Oxygen Saturation 99% 05/05/2025 1:26 PM EDT Inhaled Oxygen Concentration - - Weight 63.1 kg (139 lb 3.2 oz) 05/05/2025 1:26 P M EDT Height 150 cm (4' 11.06 ) 05/05/2025 1:26 PM EDT Body Mass Index 28.06 05/05/2025 1:26 PM EDT Plan of Treatment Upcoming Encounters Date Type Department Care Team (Late st Contact Info) Description 06/16/2025 11:30 AM EDT Clinical Support [address] [address] Health Maintenance Due Date Last Done Comments Dental Oral Exam 2000 Dental Prophylaxis 2000 Dental X-Ray: Bitewings 2000 Dental X-Ray: Full Mouth 2000 HPV Vaccines (1 - 3-dose series) 01/14/2015 DTaP/Tdap/Td Vaccines (1 - Tdap) 01/14/2019 Hepatitis B Vaccines (1 of 3 - 19+ 3-dose series) 01/14/2019 Pap Smear 01/14/2021 COVID-19 Vaccine ( - 2023-2 5 season) 2025 Influenza Vaccine (#1) 2025 Family Planning (PISQ) 07/16/2025 07/16/2024 SDOH Screening 07/29/2025 07/29/2024 Alcohol/Substance Use Screening 08/05/2025 08/05/2024 Depression Screening 08/05/2025 08/05/2024, 08/05/2024 Disability Screening 03/30/2026 03/30/2025 Tobacco Screening 05/05/2026 05/05/2025 Zoster Vaccines (1 of 2) 01/14/2050 RSV [...] Name Priority Date/Time Associated Diagnosis Comments POCT HEMOGLOBIN Routine 05/05/2025 1:49 PM EDT Dark stools POCT , URINE Routine 03/30/2025 4:21 PM EDT Encounter for Depo-Provera contraception CHLAMYDIA/TRICHOMON /NEISSERIA GONORRHOEAE, PCR, URINE Routine 03/30/2025 4:03 PM EDT Dysuria Vaginal discharge BACTERIAL VAGINOSIS PANEL Routine 03/30/2025 4:03 PM EDT Vaginal discharge HEPATITIS C AB W/REFL TO HCV RNA, QN, PCR Routine 08/05/2024 3:01 PM EST Encounter for screening examination for sexually transmitted disease HIV 1/2 ANTIGEN/ANTIBODY, FOURTH GENERATION W/RFL Routine 08/05/2024 3:01 PM EST Encounter for screening examination for sexually transmitted disease from Last 3 Months or Most Recently Relevant to Health Maintenance Results * POCT Hemoglobin (05/05/2025 1:49 PM EDT) Pathologist [facility] Hemoglobin 12.9 12.0 - 15.0 QC Media Lot # [id number] Lot# Expiration Date 102,[id number] Blood 05/05/2025 1:49 PM EDT Hugh Theodore MD POINT OF CARE TEST ENTER/EDIT OR DERABLES Final Result * POCT Urine (03/30/2025 4:21 PM EDT) Pathologist [facility] Preg Test, Ur Negative Negative, Indeterminate, None Detected, Invalid, Specimen unsatisfactory for evaluation, Weakly Positive, 2+ QC Media Lot # [id number] Lot# Expiration Date 93,026 Urine 03/30/2025 4:21 PM EDT Yvonne Tovar NP POINT OF CARE TEST ENTER/EDIT OR DERABLES Final Result * Chlamydia/N. Gonorrhoeae, PCR, Urine (03/30/2025 4:03 PM EDT) CT PCR, Urine NOT DETECTED Not Detect. [facility] Comment:A not detected test result does not exclude the possibilityof infection because test results can be affected byimproper specimen collection, concurrent antibiotic therapy,or the number of organisms in the specimen which may bebelow the sensitivity of the test. As with many diagnostictests, results from the Xpert CT/NG assay should beinterpreted in conjunction with other laboratory andclinical data available to the clinician.The Xpert CT/NG assay should not be used for the evaluationof suspected sexual abuse or for other medico-legalindications. Additional testing is recommended in anycircumstance when false positive or false negative resultscould lead to adverse medical, social or psychologicalconsequences. NG PCR, Urine NOT DETECTED Not Detect. [facility] Comment:A not detected test result does not exclude the possibilityof infection because test results can be affected byimproper specimen collection, concurrent antibiotic therapy,or the number of organisms in the specimen which may bebelow the sensitivity of the test. As with many diagnostictests, results from the Xpert CT/NG assay should beinterpreted in conjunction with other laboratory andclinical data available to the clinician.The Xpert CT/NG assay should not be used for the evaluationof suspected sexual abuse or for other medico-legalindications. Additional testing is recommended in anycircumstance when false positive or false negative resultscould lead to adverse medical, social or psychologicalconsequences. Urine (Urine, Random) 03/30/2025 4:03 PM EDT 03/31/2025 11:37 AM EDT Yvonne Tovar NP LAB URINE ORDERABLES Final Resul t [facility] [address] [place] [phone] * Bacterial Vaginosis Panel (03/30/2025 4:03 PM EDT) TRICHOMONAS VAGINALIS DETECTION BY PCR NOT DETECTED Not Detect [facility] BACTERIAL VAGINOSIS DETECTION BY PCR NEGATIVE Negative [facility] Comment:The BV organism targ ets of the Xpert Xpress MVP test can becommensal in women; Xpert Xpress MVP positive results forbacterial vaginosis should be considered in conjunction withother clinical and patient information to determine thedisease status. Organisms that are not detected by the XpertXpress MVP test have also been reported to be associatedwith BV and aerobic vaginitis.The Xpert Xpress MVP test performance has not been evaluatedin patients under the age of 14. KRISTIN GROUP DETECTION BY PCR NOT DETECTED Not Detect [facility] Kristin glab krusei PCR NOT DETECTED Not Detect [facility] Swab Vaginal structure / Unknown 03/30/2025 4:03 PM EDT 03/31/2025 11:37 AM EDT us Yvonne Tovar [facility] MICROBIOLOGY - GENERAL ORDER BETH Final Result Performing Organization Address [facility]/ZIP Co de Phone Number [facility] [address] [place] [address] [phone] * Hepatitis C Antibody with Reflex to HCV, RNA, Quantitative, Real-Time PCR (08/05/2024 3:01 PM EST) Hepatitis C Antibody Nonreactive Nonreactive [facility] Comment:Antibodies to HCV no t detected; does not exclude early acuteHCV infection. Blood Venous blood specimen / Unknown 08/05/2024 3:01 PM EST 08/05/2024 4:09 PM EST us Stephanie ASHLEYM LAB BLOOD ORDERABLES Dana l Result Performing Organization Address City/[facility]/ZIP Co de Phone Number [facility] [address] [place] [address] [phone] * HIV-1/2 Antigen and Antibodies, Fourth Generation, with Reflexes (08/05/2024 3:01 PM EST) HIV AB/AG Nonreactive Nonreactive [facility] Comment:HIV-1 p24 Ag and/or HIV-1/HIV-2 Ab not detected.A test result that is nonreactive does not exclude thepossibility of exposure to or infection with HIV-1 and/orHIV-2. Nonreactive results in this assay for individualswith prior exposure to HIV-1 and/or HIV-2 may be due toantigen and antibody levels that are below the limit ofdetection of this assay.The [employer] HIV Ag/Ab Combo assay result andsupplemental assay results should be interpreted inconjunction with the patient's clinical presentation,history and other laboratory results. If the results areinconsistent with clinical evidence, additional testing issuggested to confirm the result. Blood Venous blood specimen / Unknown 08/05/2024 3:01 PM EST 08/05/2024 4:09 PM EST Stephanie Ellsworth CN LAB BLOOD ORDERABLES Dana stephanie Result [facility] [address] [place] [address] [phone] from Last 3 Months or Most Recently Relevant to Health Maintenance [facility] Care Teams Craniologist Relationship Specialty Start Date End Date Yvonne Tovar NP [address] [place] [phone] PCP - General Family Medicine 08/05/24
[2025-06-09 16:26] LABS: MANUAL DIFF FLAG NO
[2025-06-09 16:46] LABS: Alanine Aminotransferase 80 U/L (0-31); Albumin Level 4.5 g/dL (3.5-5.0); Alkaline Phosphatase 91 U/L (39-117); Anion Gap 12 (12-20); Aspartate Amino Transferase 45 U/L (5-31); Blood Urea Nitrogen 16 mg/dL (9-16); Calcium 8.7 mg/dL (8.4-10.2); Carbon Dioxide 24 mmol/L (22-29); Chloride 111 mmol/L (96-108); Estimated Glomerular Filt Rate > 60; Hematocrit 39.2 % (37.0-47.0); Hemoglobin 12.7 g/dl (12.0-16.0); Imm Gran Abs Auto 0.02 X10*3/uL (0.00-0.03); Imm Gran Pct Auto 0.3 % (0.0-0.4); Lymphocytes Absolute Auto 2.9 X10*3/uL (1.2-4.9); Mean Corpuscular HGB Conc 32.4 g/dl (31.0-35.0); Mean Corpuscular Hemoglobin 27.3 pg (27.0-33.0); Mean Corpuscular Volume 84.3 fL (80.0-98.0); NRBC Abs Auto 0.000 X10*3/uL (0.0-0.012); NRBC Pct Auto 0.0 /100WBC (0.0-0.2); Platelet Count 193 X10*3/uL (160-400); Potassium 3.4 mmol/L (3.3-5.1); Red Blood Count 4.65 X10*6/uL (4.20-5.50); Sodium 144 mmol/L (135-145); Total Protein 7.4 g/dL (6.5-8.0); White Blood Count 7.6 X10*3/uL (4.8-10.8)
[2025-06-09 17:11] LABS: Ferritin 20 ng/mL (10-122)
== END 2025-06-09 13:16 | disposition home or self-care (01) ==
LOC: HO.HHCL 13:15
PROVIDERS: PCP Nurse Practitioner Family; Visit Provider Internal Medicine Geriatric Medicine
DX: L83 Acanthosis nigricans (principal); R23.9 Unspecified skin changes; R07.89 Other chest pain; R19.5 Other fecal abnormalities; K21.9 Gastro-esophageal reflux disease without esophagitis
CPT/HCPCS: 36415; 80053; 82728; 83036; 85025

== ENCOUNTER 2025-06-23 13:19 | Outpatient (REF) | payer MEDICAID, SELFPAY ==
--- OUTSIDE RECORDS SUMMARY | 2025-06-23 16:07 | XMS_ITS | Clinical Summary ---
Author Organization [employer] Address [address] [place] [address] [address] [place] [address] Care Team Providers Care Product Planner Name Role Phone BoubacarYvonne del rosario RAJAN Primary Care Provider [phone] Allergies No known active allergies Medications medroxyPROGESTERo ne (Depo-Provera) 150 MG/ML injectionIndicati ons:Encounter for Depo-Provera contraception Inject 1 mL (150 mg) into the muscle every 3 (three) months. 1 mL 3 07/16/20 24 025 Active sucralfate (Carafate) 1 g tablet Take 1 tablet (1 g) by mouth before breakfast, before lunch, before evening meal, and at bedtime for 7 days. 28 tablet 06/16/20 25 025 Active omeprazole (PriLOSEC) [address] capsuleIndication s:Non-cardiac chest pain,Dark stools,Gastroesop hageal reflux disease, unspecified whether esophagitis present Take 1 capsule (40 mg) by mouth before breakfast. Do not crush or chew. 30 capsule 1 06/16/20 25 026 Active omeprazole (PriLOSEC) [address] capsuleIndication s:Non-cardiac chest pain,Dark stools,Gastroesop hageal reflux disease, unspecified whether esophagitis present Take 1 capsule (40 mg) by mouth before breakfast. Do not crush or chew. 30 capsule 1 05/05/20 25 025 Discontinued(Re order (will not trigger notification to Pharmacy)) Hospital, Clinic, or Other Facility Administered Medication Ordered Dose Route Frequency Start Date End Date Status medroxyPROGESTERone (Depo-Provera) injection 150 mgIndications:Encounte r for Depo-Provera contraception 150 mg IM Every 3 months 11/04/2024 10/30/2025 Active medroxyPROGESTERone (Depo-Provera) injection 150 mgIndications:Encounte r for Depo-Provera contraception 150 mg IM Every 3 months 11/04/2024 01/28/2026 Active Active Problems Problem Noted Date Diagnosed Date High transaminase levels 06/16/2025 Assessment & Plan (06/16/2025 4:51 PM EDT): On labs done last month by PCP. Repeat LFTs and hep profile and follow-up with PCP We discussed about cutting down on calorie and fat intake Gastroesophageal reflux disease 06/16/2025 Assessment & Plan (06/16/2025 4:51 PM EDT): Is probably the culprit of patient's presenting symptoms, will rule out H. pylori. Use sucralfate x 1 week then start one omeprazole x 2 months and follow-up with PCP. Advised to take H. pylori testing prior to starting on omeprazole. Dysuria 03/30/2025 Assessment & Plan (03/30/2025 8:06 PM EDT): Dysuria has resolved, gc/chl ordered, bv panel ordered Pap offered today pt declines, opts for scheduling at future date Skin change 12/31/2024 Acanthosis nigricans 12/31/2024 Assessment & Plan (06/16/2025 4:53 PM EDT): Patient was concerned about recent labs ordered by PCP, we discussed A1c results, no evidence of prediabetes but we discussed with patient the significance of markers for insulin resistance, the importance of decreased calorie intake, increase exercise. Agreed to be referred to dietitian. Follow-up with PCP Assessment & Plan (01/29/2025 11:49 AM EDT): [...] including risk of osteoporosis and meningioma with halfway use. As well as side effects such [...] Encounters Date Type Department Care Team Description 06/16/2025 3:40 PM EDT Office Visit [facility] [address] [place] [phone] Carey Gan MD High transaminase levels (Primary Dx); Gastroesophageal reflux disease, unspecified whether esophagitis present; Acanthosis nigricans; Dark stools; Non-cardiac chest pain; Gastroesophageal reflux disease, unspecified whether esophagitis present 06/16/2025 Travel 06/11/2025 1:30 PM EDT Office Visit [facility] [address] [place] [phone] Any Blue 05/05/2025 1:40 PM EDT Office Visit [facility] [address] [address] Name, MD Hugh Gastroesophageal reflux disease, unspecified whether esophagitis present (Primary Dx); Non-cardiac chest pain; Dark stools 05/05/2025 Travel 04/03/2025 Results Follow-Up [facility] [address] [place] [phone] Tamra Madsen RN Chlamydia/N. Gonorrhoeae, PCR, Urine, Bacterial Vaginosis Panel, POCT Urine 03/30/2025 3:15 PM EDT Office Visit [facility] [address] [place] [address] Yvonne Tovar NP Dysuria (Primary Dx); Encounter for Depo-Provera contraception; Vaginal discharge 03/30/2025 Travel 03/27/[address] [address] Livier Santos [place] Chart Prep from Last [...] with others, in a hotel, in a custodial, living outside on the street, on a [...] Sign Reading Time Taken Comments Blood Pressure 112/58 06/16/2025 3:47 PM EDT Pulse 68 06/16/2025 3:47 PM EDT Temperature 37.1 C (98.8 F) 06/16/2025 3:47 PM EDT Respiratory Rate 16 06/16/2025 3:47 PM EDT Oxygen Saturation 99% 05/05/2025 1:26 PM EDT Inhaled Oxygen Concentration - - Weight 61.6 kg (135 lb 12.8 oz) 06/16/2025 3:47 PM EDT Height 147.3 cm (4' 10 ) 06/16/2025 3:47 PM EDT Body Mass Index 28.38 06/16/2025 3:47 PM EDT Plan of Treatment Upcoming Encounters Date Type Department Care Team (Late st Contact Info) Description 07/13/2025 12:45 PM EST Office Visit [facility] [address] [place] [address] Any Blue Health Maintenance Due Date Last Done Comments Dental Prophylaxis 2000 HPV Vaccines (1 - 3-dose series) 01/14/2015 DTaP/Tdap/Td Vaccines (1 - Tdap) 01/14/2019 Hepatitis B Vaccines (1 of 3 - 19+ 3-dose series) 01/14/2019 Pap Smear 01/14/2021 COVID-19 Vaccine (1 - 2023-2 5 season) 2025 Influenza Vaccine (#1) 2025 Family Planning (PISQ) 07/16/2025 07/16/2024 SDOH Screening 07/29/2025 07/29/2024 Alcohol/Substance Use Screening 08/05/2025 08/05/2024 Depression Screening 08/05/2025 08/05/2024, 08/05/2024 Dental Oral Exam 12/11/2025 06/11/2025 Disability Screening 03/30/2026 03/30/2025 Dental X-Ray: Bitewings 06/12/2026 06/11/2025 Tobacco Screening 06/16/2026 06/16/2025 Dental X-Ray: Full Mouth 06/12/2028 06/11/2025 Zoster Vaccines (1 of 2) 01/14/2050 RSV [...] Procedure Name Priority Date/Time Associated Diagnosis Comments PERIODIC ORAL EVALUATION - ESTABLISHED PATIENT Routine 06/11/2025 1:30 PM EDT CASE PRESENTATION, DETAILED AND EXTENSIVE TREATMENT PLANNING Routine 06/11/2025 1:30 PM EDT INTRAORAL - COMPLETE SERIES OF RADIOGRAPHIC IMAGES Routine 06/11/2025 1:30 PM EDT 12 O COMPOSITE FILLING Routine 06/11/2025 12:00 AM EDT 14 O COMPOSITE FILLING Routine 06/11/2025 12:00 AM EDT 20 DO COMPOSITE FILLING Routine 06/11/2025 12:00 AM EDT FERRITIN Routine 06/09/2025 1:23 PM EDT Non-cardiac chest pain Dark stools Gastroesophageal reflux disease, unspecified whether esophagitis present CBC WITH AUTO DIFFERENTIAL Routine 06/09/2025 1:23 PM EDT Non-cardiac chest pain Dark stools Gastroesophageal reflux disease, unspecified whether esophagitis present HEMOGLOBIN A1C Routine 06/09/2025 1:23 PM EDT Skin change AN (acanthosis nigricans) COMPREHENSIVE METABOLIC PANEL Routine 06/09/2025 1:23 PM EDT Skin change AN (acanthosis nigricans) POCT HEMOGLOBIN Routine 05/05/2025 1:49 PM EDT Dark stools POCT , URINE Routine 03/30/2025 4:21 PM EDT Encounter for Depo-Provera contraception CHLAMYDIA/TRICHOMONAS /NEISSERIA GONORRHOEAE, PCR, URINE Routine 03/30/2025 4:03 [...] Recently Relevant to Health Maintenance Results * CBC auto differential (06/09/2025 1:23 PM EDT) White Blood Count 7.6 4.8 - 10.8 X10*3/uL [facility] Red Blood Count 4.65 4.20 - 5.50 X10*6/uL [facility] Hemoglobin 12.7 12.0 - 16.0 g/dl [facility] Hematocrit 39.2 37.0 - 47.0 % [facility] Mean Corpuscular Volume 84.3 80.0 - 98.0 fL [facility] Mean Corpuscular Hemoglobin 27.3 27.0 - 33.0 pg [facility] Mean Corpuscular HGB Conc 32.4 31.0 - 35.0 g/dl [facility] Red Cell Distribution Width 14.3 11.0 - 16.0 % [facility] Platelet Count 193 160 - 400 X10*3/uL [facility] Mean Platelet Volume 12.0 9.4 - 12.3 fL [facility] Neutrophils Percent Auto 50.4 45 - 73 % [facility] Imm Gran Pct Auto 0.3 0.0 - 0.4 % [facility] Lymphocytes Percent Auto 38.2 20 - 40 % [facility] Monocytes Percent Auto 8.5 2 - 11 % [facility] Eosinophils Percent Auto 2.2 0 - 4 % [facility] Basophils Percent Auto 0.4 0 - 2 % [facility] NRBC Pct Auto 0.0 0.0 - 0.2 /100WBC [facility] Neutrophils Absolute Auto 3.8 2.0 - 8.3 x10*3/uL [facility] Imm Gran Abs Auto 0.02 0.00 - 0.03 X10*3/uL [facility] Lymphocytes Absolute Auto 2.9 1.2 - 4.9 X10*3/uL [facility] Monocytes Absolute Auto 0.7 0.1 - 1.2 X10*3/uL [facility] Eosinophils Absolute Auto 0.2 0.0 - 0.4 X10*3/uL [facility] Basophils Absolute Auto 0.0 0.0 - 0.2 X10*3/uL [facility] NRBC Abs Auto 0.000 0.0 - 0.012 X10*3/uL [facility] Blood Venous blood specimen / Unknown 06/09/2025 1:23 PM EDT 06/09/2025 4:22 PM EDT us Hugh Theodore MD LAB BLOOD ORDERABLES Final Resul t Performing Organization Address [facility] Co de Phone Number [facility] [address] [place] [phone] * Hemoglobin A1c (06/09/2025 1:23 PM EDT) Hemoglobin A1c 5.4 <6.0 % [facility] Comment:Hemoglobin A1C Refer ence Range Adults: 4.8 - 6.0 % Non diabetic: < 6.0 % Goal: < 7.0 %Additional Action Suggested: > 8.0 %Note: Hemoglobin A1c results are invalid for patients with abnormal amounts of HbF. Blood transfusions may impact the HbA1c concentration in the patient sample. Estimated Average Glucose 108 mg/dL [facility] Comment:eAG = Estimated ave rage glucose which is %A1C expressed asaverage glucose, using the formula of the I0Z-UpxgqabCeogwga Glucose study (ADAG), Diabetes Care, Vol.31,#8,Apr. 2007 Blood Venous blood specimen / Unknown 06/09/2025 1:23 PM EDT 06/09/2025 4:22 PM EDT Yvonne Tovar NP LAB BLOOD ORDERABLES Final Resul t Performing Organization Address [facility] Co de Phone Number [facility] [address] [place] [phone] * Ferritin (06/09/2025 1:23 PM EDT) Ferritin 20 10 - 122 ng/mL [facility] Blood Venous blood specimen / Unknown 06/09/2025 1:23 PM EDT 06/09/2025 4:22 PM EDT us Hugh Theodore MD LAB BLOOD ORDERABLES Final Resul t Performing Organization Address [facility] Co de Phone Number [facility] [address] [place] [phone] * (ABNORMAL) Comprehensive Metabolic Panel (06/09/2025 1:23 PM EDT) Sodium 144 135 - 145 mmol/L [facility] Potassium 3.4 3.3 - 5.1 mmol/L [facility] Chloride 111(H) 96 - 108 mmol/L [facility] Carbon Dioxide 24 22 - 29 mmol/L [facility] Anion Gap 12 12 - 20 [facility] Urea Nitrogen (BUN) 16 9 - 16 mg/dL [facility] Creatinine, Serum 0.79 0.5 - 1.4 mg/dL [facility] Estimated Glomerular Filt Rate >60 [facility] Comment:Chronic Kidney Disea se: Estimated GFR < 60 mL/min/1.34o9Gisylf Kidney Disease: Estimated GFR < 15 mL/min/1.73m2 Glucose 81 60 - 115 mg/dL [facility] Calcium 8.7 8.4 - 10.2 mg/dL [facility] Bilirubin, Total 0.3 0.0 - 1.0 mg/dL [facility] Aspartate Amino Transferase 45(H) 5 - 31 U/L [facility] Alanine Aminotransferase 80(H) 0 - 31 U/L [facility] Total Protein 7.4 6.5 - 8.0 g/dL [facility] Albumin Level 4.5 3.5 - 5.0 g/dL [facility] Alkaline Phosphatase 91 39 - 117 U/L [facility] Blood Venous blood specimen / Unknown 06/09/2025 1:23 PM EDT 06/09/2025 4:22 PM EDT us Yvonne Tovar EQUIPMENT MAINTENANCE ENGINEER LAB BLOOD ORDERABLES Final Resul t [facility] [address] [place] [phone] [phone] * POCT Hemoglobin (05/05/2025 1:49 PM EDT) Hemoglobin 12.9 12.0 - 15.0 QC Media Lot # [id number] Lot# Expiration Date [id number] Blood 05/05/2025 1:49 PM EDT Hugh Theodore MD POINT OF CARE TEST ENTER/EDIT OR DERABLES Final Result * POCT Urine (03/30/2025 4:21 PM EDT) Preg Test, Ur Negative Negative, Indeterminate, None Detected, Invalid, Specimen unsatisfactory for evaluation, Weakly Positive, 2+ QC Media Lot # [id number] Lot# Expiration Date 93,026 Urine 03/30/2025 4:21 PM EDT Yvonne Tovar NP POINT OF CARE TEST ENTER/EDIT OR DERABLES Final Result * Chlamydia/N. Gonorrhoeae, PCR, Urine (03/30/2025 4:03 PM EDT) CT PCR, Urine NOT DETECTED Not Detect. [facility] Comment:A not detected test result [...] NG PCR, Urine NOT DETECTED Not Detect. [facility] Comment:A not detected test result [...] 03/31/2025 11:37 AM EDT us Yvonne Tovar NP LAB URINE ORDERABLES Final Resul t Performing Organization Address [facility]/ZIP Co de Phone Number [facility] [address] [place] [phone] * Bacterial Vaginosis Panel (03/30/2025 4:03 PM EDT) TRICHOMONAS VAGINALIS DETECTION BY PCR NOT DETECTED Not Detect [facility] BACTERIAL VAGINOSIS DETECTION BY PCR NEGATIVE Negative [facility] Comment:The BV organism targ ets [...] DETECTION BY PCR NOT DETECTED Not Detect [facility] Kristin glab krusei PCR NOT DETECTED Not Detect [facility] Swab Vaginal structure / Unknown 03/30/2025 4:03 PM EDT 03/31/2025 11:37 AM EDT us Yvonne Tovar NP LAB MICROBIOLOGY - GENERAL ORDER BETH Final Result Performing Organization Address [facility]/ZIP Co de Phone Number [facility] [address] [place] [phone] * Hepatitis C Antibody with Reflex to HCV, RNA, Quantitative, Real-Time PCR (08/05/2024 3:01 PM EST) Hepatitis C Antibody Nonreactive Nonreactive [facility] Comment:Antibodies to HCV no t detected; does not exclude early acuteHCV infection. Blood Venous blood specimen / Unknown 08/05/2024 3:01 PM EST 08/05/2024 4:09 PM EST Stephanie Ellsworth [facility] LAB BLOOD ORDERABLES Dana l Result [facility] [address] [place] [phone] * HIV-1/2 Antigen and Antibodies, Fourth Generation, with Reflexes (08/05/2024 3:01 PM EST) HIV AB/AG Nonreactive Nonreactive [facility] Comment:HIV-1 p24 Ag and/or HIV-1/HIV-2 Ab not detected.A test result that is nonreactive does not exclude thepossibility of exposure to or infection with HIV-1 and/orHIV-2. Nonreactive results in this assay for individualswith prior exposure to HIV-1 and/or HIV-2 may be due toantigen and antibody levels that are below the limit ofdetection of this assay.The [facility] HIV Ag/Ab Combo assay result andsupplemental assay results should be interpreted inconjunction with the patient's clinical presentation,history and other laboratory results. If the results areinconsistent with clinical evidence, additional testing issuggested to confirm the result. Blood Venous blood specimen / Unknown 08/05/2024 3:01 PM EST 08/05/2024 4:09 PM EST Stephanie Ellsworth [facility] LAB BLOOD ORDERABLES Dana l Result [facility] [address] [place] [phone] [phone] from Last 3 Months or Most Recently Relevant to Health Maintenance Insurance [facility] FULL DENTAL - HSN FULL (MEDICAID) DENTAL-[facility] MEDICAID LIMITED ADULT Care Teams Product Planner Relationship Specialty Start Date End Date Yvonne Tovar NP [address] [place] [phone] PCP - General Family Medicine 08/05/24
[2025-06-23 17:24] LABS: Alanine Aminotransferase 79 U/L (0-31); Albumin Level 4.6 g/dL (3.5-5.0); Alkaline Phosphatase 83 U/L (39-117); Aspartate Amino Transferase 49 U/L (5-31); Total Protein 7.5 g/dL (6.5-8.0)
[2025-06-23 17:36] LABS: Gamma Glutamyl Transpeptidase 33 U/L (7-33)
[2025-06-24 04:14] LABS: HBS Num1 > 1000.00 mIU/mL (0-7.99); HBc Num1 0.08 S/CO (0.00-0.79); HBsAGNum1 0.61 S/CO (0.00-0.99); Hepatitis A Antibody IgM 0.26 Index (0-0.79); Hepatitis B Surface Antigen Negative (Negative); ~HepC Num1 0.13 S/CO (0.00-0.79); ~Hepatitis A Antibody IgM Nonreactive (Nonreactive); ~Hepatitis B Surface Antibody REACTIVE (Nonreactive); ~Hepatitis C Antibody Nonreactive (Nonreactive)
== END 2025-06-23 13:20 | disposition home or self-care (01) ==
LOC: HO.HHCL 13:19
PROVIDERS: PCP Nurse Practitioner Family; Referring Provider Internal Medicine Geriatric Medicine; Visit Provider Internal Medicine
DX: Z11.59 Encounter for screening for other viral diseases (principal); K21.9 Gastro-esophageal reflux disease without esophagitis
CPT/HCPCS: 36415; 80076; 82977; 86704; 86706; 86709; 86803; 87340

== ENCOUNTER 2025-06-30 16:46 | Outpatient (REF) | payer MEDICAID, SELFPAY ==
--- OUTSIDE RECORDS SUMMARY | 2025-06-30 21:09 | XMS_ITS | Encounter Summary ---
Author Organization [employer] Address [address] [place] [address] [address] [place] [address] Care Team Providers Care Central Office Installer Name Role Phone Yvonne Tovar RAJAN Primary Care Provider [phone] Reason for Referral * Imaging (Routine) - Authorized Specialty Diagnoses / Procedures Referred By Claudio louis Referred To Contact Radiology Diagnoses High transaminase levels Procedures US Abdomen Complete Carey Gan MD [address] [place] [phone] Phone: tel: fax: [address] Phone: tel: fax: Referral ID Status Reason Start Date Expiration Date V isits Requested Visits Authorized [id number] Authorized 06/25/2025 06/25/2026 1 1 Reason for Visit * Reason Onset Date Comments Results 06/25/2025 Encounter Details Date Type Department Care Team (Late st Contact Info) Description 06/25/2025 Results Follow-Up [facility] [address] [place] [address] [phone] Carey Gan MD [address] [place] [address] [phone] Hepatitis Panel, General, Hepatic Function Panel, Gamma Glutamyl Transferase (GGT) Social History Tobacco Use Types Packs/Day Years Used Date Smoking Tobacco: Never Smokeless Tobacco: Never Alcohol Use Standard Drinks/Week Comments Never 0 [...] with others, in a hotel, in a prison, living outside on the street, on a [...] encounter Miscellaneous Notes * Telephone Encounter - Valerie Rowe RN - 06/29/2025 9:16 AM EDT TC placed to patient via [employer] residential roofer helper (#[id number]) in regards to below message. Patient verbalized understanding and is aware she will receive a call from the hospital for scheduling of the abdominal US. Patient also aware of hep A results and option to receive booster vaccine; patient would like toreceive hep A booster vaccine. RN scheduled patient for 07/06/25 at 3:30pm. Patient to f/u PRN. ----- Message from Carey Gan MD sent at 06/25/2025 4:12 PM EDT ----- Labs on 06/23/2025 showed persistently mildly elevated LFTs, fairly unchanged from previous ones. Please call patient and tell her that her liver is a little bit inflamed, but that it is working well. Please tell her that I will order a liver ultrasound to actually see the liver, especially inthe setting of abdominal pain, she should schedule an appointment to follow-up with her PCP after she has the ultrasound. Please tell her that her hepatitis testing is all fine, she could get vaccination against hepatitis A if she wants to follow-up with her PCP in this regard, please remind her the importance of avoiding alcohol or any recreational substances. ----- Message ----- From: Interface, Lab Results In Sent: 06/23/2025 5:25 PM EDT To: Carey Gan MD * Result Encounter Note - Carey Gan MD - 06/25/2025 4:12 PM EDT Labs on 06/23/2025 showed persistently mildly elevated LFTs, fairly unchanged from previous ones. Please call patient and tell her that her liver is a little bit inflamed, but that it is working well. Please tell her that I will order a liver ultrasound to actually see the liver, especially in the setting of abdominal pain, she should schedule an appointment to follow-up with her PCP after she has the ultrasound. Please tell her that her hepatitis testing is all fine, she could get vaccination against hepatitis A if she wants to follow-up with her PCP in this regard, please remind her the importance of avoiding alcohol or any recreational substances. documented in this encounter Plan of Treatment Upcoming Encounters Date Type Department Care Team (Late st Contact Info) Description 07/01/2025 1:15 PM EDT Office Visit [facility] [address] [place] [address] Dakotah Ross, DMD [address] [place] [address] 07/07/2025 10:30 AM EDT Immunization [facility] [address] [place] [address] 07/13/2025 12:45 PM EST Office Visit [facility] [address] [place] [address] Any Blue Scheduled Orders Name Type Priority Associated Diagnoses Orde r Schedule US Abdomen Complete Imaging Routine High transaminase levels Expected: 06/25/2025 (Approximate), Expires: 06/25/2026 documented as of this encounter Visit Diagnoses Diagnosis High transaminase levels- Primary documented in this encounter Additional Health Concerns Assessment Noted Time PHQ-9 Depression Total Score: 4 08/05/20 24 2:52 PM EST documented as of this encounter Care Teams Central Office Installer Relationship Specialty Start Date End Date Yvonne Tovar NP [address] [place] [address] PCP - General Family Medicine 08/05/24 documented as of this encounter
--- OUTSIDE RECORDS SUMMARY | 2025-06-30 21:09 | XMS_ITS | Clinical Summary ---
Author Organization [employer] Address [address] [place] [address] 7t [place] [address] Care Team Providers Care Court Interpreter Name Role Phone BoubacarYvonne del rosario RAJAN Primary Care Provider Allergies No known active allergies Medications medroxyPROGESTERo ne (Depo-Provera) 150 MG/ML injectionIndicati ons:Encounter for Depo-Provera contraception Inject 1 mL (150 mg) into the muscle every 3 (three) months. 1 mL 3 07/16/20 24 025 Active omeprazole (PriLOSEC) [address] [...] order (will not trigger notification to Pharmacy)) sucralfate (Carafate) 1 g tablet Take 1 tablet (1 g) by mouth before breakfast, before lunch, before evening meal, and at bedtime for 7 days. 28 tablet 06/16/20 25 025 Hospital, Clinic, or Other Facility Administered Medication [...] including risk of osteoporosis and meningioma with penitentiary use. As well as side effects such [...] Encounters Date Type Department Care Team Description 06/25/2025 Results Follow-Up [facility] [address] [place] [phone] Carey Gan MD Hepatitis Panel, General, Hepatic Function Panel, Gamma Glutamyl Transferase (GGT) 06/16/2025 3:40 PM EDT Office Visit [facility] [address] [place] [phone] Carey Gan MD High transaminase levels (Primary Dx); Gastroesophageal reflux disease, unspecified whether esophagitis present; Acanthosis nigricans; Dark stools; Non-cardiac chest pain; Gastroesophageal reflux disease, unspecified whether esophagitis present 06/16/2025 Travel 06/11/2025 1:30 PM EDT Office Visit [facility] [address] [place] [phone] Any Blue 05/05/2025 1:40 PM EDT Office Visit [facility] [address] [place] [phone] Arben, MD Hugh Gastroesophageal reflux disease, unspecified whether esophagitis present (Primary Dx); Non-cardiac chest pain; Dark stools 05/05/2025 Travel 04/03/2025 Results Follow-Up [facility] [address] [place] [phone] Tamra Madsen RN Chlamydia/N. Gonorrhoeae, PCR, Urine, Bacterial Vaginosis Panel, POCT Urine 03/30/2025 3:15 PM EDT Office Visit [facility] [address] [place] [phone] Yvonne Tovar NP Dysuria (Primary Dx); Encounter for Depo-Provera contraception; Vaginal discharge 03/30/2025 Travel from Last 3 Months Social History [...] with others, in a hotel, in a senior living, living outside on the street, on a [...] Description 07/01/2025 1:15 PM EDT Office Visit [facility] [address] [place] [address] Dakotah Ross, NOREEN [address] [place] [address] 07/07/2025 10:30 AM EDT Immunization [facility] [address] [place] [address] 07/13/2025 12:45 PM EST Office Visit [facility] [address] [place] [address] Any Blue Health Maintenance Due Date Last [...] Screening Completed 08/05/2024 Hepatitis C Screening Completed 06/23/2025 , 08/05/2024 HIB Vaccines Aged Out No longer [...] Procedure Name Priority Date/Time Associated Diagnosis Comments GGT Routine 06/23/2025 1:24 PM EDT Gastroesophageal reflux disease, unspecified whether esophagitis present HEPATIC FUNCTION PANEL Routine 06/23/2025 1:24 PM EDT Gastroesophageal reflux disease, unspecified whether esophagitis present HEPATITIS PANEL, GENERAL Routine 06/23/2025 1:24 PM EDT Gastroesophageal reflux disease, unspecified whether esophagitis present PERIODIC ORAL EVALUATION - ESTABLISHED PATIENT Routine [...] Routine 03/30/2025 4:03 PM EDT Vaginal discharge HIV 1/2 ANTIGEN/ANTIBODY, FOURTH GENERATION W/RFL Routine 08/05/2024 3:01 PM EST Encounter for screening examination for sexually transmitted disease from Last 3 Months or Most Recently Relevant to Health Maintenance Results * Hepatitis Panel, General (06/23/2025 1:24 PM EDT) Hepatitis A IgM Nonreactive Nonreactive [facility] Comment:IgM antibodies to NEUMANN V not detected; does not exclude earlyacute or recovered HAV infection. ~Hepatitis B Surface Antibody REACTIVE Nonreactive [facility] Comment:REACTIVE: > 11.99 mI U/mL Hepatitis B Core Antibody Nonreactive Nonreactive [facility] Hepatitis C Antibody Nonreactive Nonreactive [facility] Comment:Antibodies to HCV no t detected; does not exclude early acuteHCV infection. Hepatitis B Surface Ag Negative Negative [facility] Blood 06/23/2025 1:24 PM EDT 06/23/2025 4:15 PM EDT us Carey Gan MD LAB BLOOD ORDERABLES Fin al Result Performing Organization Address City/[facility]/ZIP Co de Phone Number [facility] [address] [place] [phone] * Gamma Glutamyl Transferase (GGT) (06/23/2025 1:24 PM EDT) Gamma Glutamyl Transpeptidase 33 7 - 33 U/L [facility] Blood Venous blood specimen / Unknown 06/23/2025 1:24 PM EDT 06/23/2025 4:15 PM EDT Carey Gan MD LAB BLOOD ORDERABLES Fin al Result [facility] [address] [place] [phone] * (ABNORMAL) Hepatic Function Panel (06/23/2025 1:24 PM EDT) [facility] Bilirubin, Total 0.4 0.0 - 1.0 mg/dL [facility] Bilirubin, Direct 0.2 0.0 - 0.5 mg/dL [facility] Aspartate Amino Transferase 49(H) 5 - 31 U/L [facility] Alanine Aminotransferase 79(H) 0 - 31 U/L [facility] Total Protein 7.5 6.5 - 8.0 g/dL [facility] Albumin Level 4.6 3.5 - 5.0 g/dL [facility] Alkaline Phosphatase 83 39 - 117 U/L [facility] Blood Venous blood specimen / Unknown 06/23/2025 1:24 PM EDT 06/23/2025 4:15 PM EDT us Carey Gan MD LAB BLOOD ORDERABLES Fin al Result [facility] [address] [place] [phone] [phone] * CBC auto differential (06/09/2025 1:23 PM EDT) [facility] White Blood Count 7.6 4.8 - 10.8 X10*3/uL [facility] Red Blood Count 4.65 4.20 - 5.50 X10*6/uL [facility] Hemoglobin 12.7 12.0 - 16.0 g/dl [facility] Hematocrit 39.2 37.0 - 47.0 % [facility] Mean Corpuscular Volume 84.3 80.0 - 98.0 fL [facility] Mean Corpuscular Hemoglobin 27.3 27.0 - 33.0 pg [facility] Mean Corpuscular HGB Conc 32.4 31.0 - 35.0 g/dl [facility] Red Cell Distribution Width 14.3 11.0 - 16.0 % [facility] Platelet Count 193 160 - 400 X10*3/uL [facility] Mean Platelet Volume 12.0 9.4 - 12.3 fL [facility] Neutrophils Percent Auto 50.4 45 - 73 % [facility] Imm Gran Pct Auto 0.3 0.0 - 0.4 % [facility] Lymphocytes Percent Auto 38.2 20 - 40 % [facility] Monocytes Percent Auto 8.5 2 - 11 % [facility] Eosinophils Percent Auto 2.2 0 - 4 % [facility] Basophils Percent Auto 0.4 0 - 2 % [facility] NRBC Pct Auto 0.0 0.0 - 0.2 /100WBC [facility] Neutrophils Absolute Auto 3.8 2.0 - 8.3 x10*3/uL [facility] Imm Gran Abs Auto 0.02 0.00 - 0.03 X10*3/uL [facility] Lymphocytes Absolute Auto 2.9 1.2 - 4.9 X10*3/uL [facility] Monocytes Absolute Auto 0.7 0.1 - 1.2 X10*3/uL [facility] Eosinophils Absolute Auto 0.2 0.0 - 0.4 X10*3/uL [facility] Basophils Absolute Auto 0.0 0.0 - 0.2 X10*3/uL [facility] NRBC Abs Auto 0.000 0.0 - 0.012 X10*3/uL [facility] Blood Venous blood specimen / Unknown 06/09/2025 1:23 PM EDT 06/09/2025 4:22 PM EDT us Hugh Theodore MD LAB BLOOD ORDERABLES Final Resul t [facility] [address] [place] [phone] * Hemoglobin A1c (06/09/2025 1:23 PM EDT) Hemoglobin A1c 5.4 <6.0 % [facility] Comment:Hemoglobin A1C Refer ence Range Adults: 4.8 - 6.0 % Non diabetic: < 6.0 % Goal: < 7.0 %Additional Action Suggested: > 8.0 %Note: Hemoglobin A1c results are invalid for patients with abnormal amounts of HbF. Blood transfusions may impact the HbA1c concentration in the patient sample. Estimated Average Glucose 108 mg/dL [facility] Comment:eAG = Estimated ave rage glucose which is %A1C expressed asaverage glucose, using the formula of the [id number] Glucose study (ADAG), Diabetes Care, Vol.31,#8,2007 Blood Venous blood specimen / Unknown 06/09/2025 1:23 PM EDT 06/09/2025 4:22 PM EDT us Yvonne Tovar NP LAB BLOOD ORDERABLES Final Resul t Performing Organization Address City/[facility]/ZIP Co de Phone Number [facility] [address] [place] [phone] * Ferritin (06/09/2025 1:23 PM EDT) Ferritin 20 10 - 122 ng/mL [facility] Blood Venous blood specimen / Unknown 06/09/2025 1:23 PM EDT 06/09/2025 4:22 PM EDT us Hugh Theodore MD LAB BLOOD ORDERABLES Final Resul t Performing Organization Address [facility] Co de Phone Number [facility] [address] [place] [phone] * (ABNORMAL) Comprehensive Metabolic Panel (06/09/2025 1:23 PM EDT) Sodium 144 135 - 145 mmol/L [facility] Potassium 3.4 3.3 - 5.1 mmol/L [facility] Chloride 111(H) 96 - 108 mmol/L [facility] Carbon Dioxide 24 22 - 29 mmol/L [facility] Anion Gap 12 12 - 20 [facility] Urea Nitrogen (BUN) 16 9 - 16 mg/dL [facility] Creatinine, Serum 0.79 0.5 - 1.4 mg/dL [facility] Estimated Glomerular Filt Rate >60 [facility] Comment:Chronic Kidney Disea se: Estimated GFR < 60 mL/min/[id number] Kidney Disease: Estimated GFR < 15 mL/min/1.73m2 Glucose 81 60 - 115 mg/dL [facility] Calcium 8.7 8.4 - 10.2 mg/dL [facility] Bilirubin, Total 0.3 0.0 - 1.0 mg/dL [facility] Aspartate Amino Transferase 45(H) 5 - 31 U/L [facility] Alanine Aminotransferase 80(H) 0 - 31 U/L [facility] Total Protein 7.4 6.5 - 8.0 g/dL [facility] Albumin Level 4.5 3.5 - 5.0 g/dL [facility] Alkaline Phosphatase 91 39 - 117 U/L [facility] Blood Venous blood specimen / Unknown 06/09/2025 1:23 PM EDT 06/09/2025 4:22 PM EDT Yvonne Tovar COMPRESSED GASES TESTER LAB BLOOD ORDERABLES Final Resul t [facility] [address] [place] [phone] * POCT Hemoglobin (05/05/2025 1:49 PM EDT) Hemoglobin 12.9 12.0 - 15.0 QC Media Lot # [id number] Lot# Expiration Date Blood 05/05/2025 1:49 PM EDT Hugh Theodore MD POINT OF CARE TEST ENTER/EDIT OR DERABLES Final Result * POCT Urine (03/30/2025 4:21 PM EDT) Preg Test, Ur Negative Negative, Indeterminate, None Detected, Invalid, Specimen unsatisfactory for evaluation, Weakly Positive, 2+ QC Media Lot # [id number] Lot# Expiration Date [id number] Urine 03/30/2025 4:21 PM EDT Yvonne Tovar NP POINT OF CARE TEST ENTER/EDIT OR DERABLES Final Result * Chlamydia/N. Gonorrhoeae, PCR, Urine (03/30/2025 4:03 PM EDT) CT PCR, Urine NOT DETECTED Not Detect. [facility] Comment:A not detected test result [...] NG PCR, Urine NOT DETECTED Not Detect. [facility] Comment:A not detected test result [...] ORDERABLES Final Resul t Performing Organization Address [facility] Co de Phone Number [facility] [address] [place] [phone] * Bacterial Vaginosis Panel (03/30/2025 4:03 PM EDT) TRICHOMONAS VAGINALIS DETECTION BY PCR NOT DETECTED Not Detect [facility] BACTERIAL VAGINOSIS DETECTION BY PCR NEGATIVE Negative [facility] Comment:The BV organism targ ets [...] DETECTION BY PCR NOT DETECTED Not Detect [facility] Kristin glab krusei PCR NOT DETECTED Not Detect [facility] Swab Vaginal structure / Unknown 03/30/2025 4:03 PM EDT 03/31/2025 11:37 AM EDT us Yvonne Tovar NP LAB MICROBIOLOGY - GENERAL ORDER BETH Final Result Performing Organization Address [facility] Co de Phone Number [facility] [address] [place] [phone] * HIV-1/2 Antigen and Antibodies, Fourth Generation, with Reflexes (08/05/2024 3:01 PM EST) HIV AB/AG Nonreactive Nonreactive [facility] Comment:HIV-1 p24 Ag and/or HIV-1/HIV-2 Ab not detected.A test result that is nonreactive does not exclude thepossibility of exposure to or infection with HIV-1 and/orHIV-2. Nonreactive results in this assay for individualswith prior exposure to HIV-1 and/or HIV-2 may be due toantigen and antibody levels that are below the limit ofdetection of this assay.The Bon[place]nity HIV Ag/Ab Combo assay result andsupplemental assay results should be interpreted inconjunction with the patient's clinical presentation,history and other laboratory results. If the results areinconsistent with clinical evidence, additional testing issuggested to confirm the result. Blood Venous blood specimen / Unknown 08/05/2024 3:01 PM EST 08/05/2024 4:09 PM EST us Stephanie Ellsworth [facility] LAB BLOOD ORDERABLES Dana brown Result [facility] [address] [place] [phone] from Last 3 Months or Most Recently Relevant to Health Maintenance Insurance [facility] FULL DENTAL - [facility] FULL (MEDICAID) DENTAL-[place] LIMITED ADULT Care Teams Court Interpreter Relationship Specialty Start Date End Date Yvonne Tovar NP [address] [place] [address] PCP - General Family Medicine 08/05/24
== END 2025-06-30 16:47 | disposition home or self-care (01) ==
LOC: HO.HHCLNP 16:46
PROVIDERS: Visit Provider Internal Medicine
DX: K21.9 Gastro-esophageal reflux disease without esophagitis (principal)
CPT/HCPCS: 87338

== ENCOUNTER 2025-08-11 09:37 | Outpatient (REF) | payer MEDICAID, OTHER, SELFPAY ==
--- OUTSIDE RECORDS SUMMARY | 2025-08-11 09:00 | XMS_ITS | Encounter Summary ---
Author Organization [employer] Address [address] [place] [address] Care Team Providers Care Label Pinker Name Role Phone GuyYvonne RAJAN Primary Care Provider [phone] Reason for Visit * Reason Comments Back Pain Vaginal Itching Encounter Details Date Type Department Care Team ([facility] st Contact Info) Description 08/11/2025 9:00 AM EST Office Visit [facility] [address] [place] [address] Vaginal discharge (Primary Dx); Dysuria; Acute bilateral back pain, unspecified back location; Vaginal itching Social History Tobacco Use Types [...] with others, in a [place], in [place] [facility] [place], living outside on the street, on a [...] Sign Reading Time Taken Comments Blood Pressure 108/75 08/11/2025 9:03 AM EST Pulse 86 08/11/2025 9:03 AM EST Temperature 36.6 C (97.9 F) 08/11/2025 9:03 AM EST Respiratory Rate 16 08/11/2025 9:03 AM EST Oxygen Saturation 99% 08/11/2025 9:03 AM EST Inhaled Oxygen Concentration - - Weight 59.4 kg (131 lb) 08/11/2025 9:03 AM EST Height - - Body Mass Index 27.38 06/16/2025 3:47 PM EDT documented in this encounter Plan of Treatment Upcoming Encounters Date Type Department Care Team (Late st Contact Info) Description 08/19/2025 8:00 AM EST Office Visit [facility] [address] [place] [address] Dakotah Ross, DMD [address] [place] [address] 09/15/2025 1:30 PM EST Office Visit [facility] [address] [place] [address] Rehan Gardner, DMD [address] [place] [address] 10/06/2025 1:00 PM EST Nutrition [facility] DI[facility]ET[facility]/NUTRITION [address] [place] [address] Silva Lawson, RD [address] [place] [address] 01/11/2026 1:30 PM EDT Office Visit [facility] [address] [place] [address] Any Blue Scheduled Orders Name Type Priority Associated Diagnoses Orde r Schedule Bacterial Vaginosis Microbiology Routine Vaginal itching Ordered: 08/11/2025 Chlamydia/N. Gonorrhoeae RNA, TMA, Urogenitial Microbiology Routine Vaginal itching Ordered: 08/11/2025 Basic Metabolic Panel Lab Routine Vaginal discharge Expected: 08/11/2025 (Approximate), Expires: 08/11/2026 hCG, Total, Quantitative Lab Routine Vaginal discharge Expected: 08/11/2025 (Approximate), Expires: 08/11/2026 Culture, Urine, Routine Microbiology Routine Dysuria Ordered: 08/11/2025 documented as of this encounter Procedures Procedure Name Priority Date/Time Associated Diagnosis Comments POCT URINALYSIS DIPSTICK Routine 08/11/2025 9:38 AM EST Vaginal itching documented in this encounter Results * (ABNORMAL) POCT urinalysis dipstick manually resulted (CPT 29720) (08/11/2025 9:38 AM EST) Color, UA Yellow Clarity, UA Clear Glucose, UA Negative Bilirubin, UA Negative Ketones, UA Negative Spec Grav, UA 1.020 Blood, UA Positive(A) Negative, None Detected Comment:Small pH, UA 6.0 Protein, UA Negative Urobilinogen, UA 0.2 Leukocytes, UA Moderate(A) Negative, Rare, Trace, 1+ (17), 2+ (35), 3+ (70), Trace (15) Nitrite, UA Negative Negative, None Detected Appearance, UA OK Urine (Urine, Random) 08/11/2025 9:38 AM EST us Rex Oliveira MD POINT OF CARE TEST ENTER/EDIT OR DERABLES Final Result documented in this encounter Visit Diagnoses Diagnosis Vaginal discharge- Primary Leukorrhea, not specified as infective Dysuria Acute bilateral back pain, unspecified back location Vaginal itching Pruritus of genital organs documented in this encounter Additional Health Concerns Assessment Noted Time PHQ-9 Depression Total Score: 4 08/05/20 24 2:52 PM EST documented as of this encounter Care Teams Label Pinker Relationship Specialty Start Date End Date Yvonne Tovar NP [address] [place] [phone] PCP - General Family Medicine 08/05/24 documented as of this encounter
--- OUTSIDE RECORDS SUMMARY | 2025-08-11 10:32 | XMS_ITS | Encounter Summary ---
Author Organization [employer] Address [address] [place] [address] Care Team Providers Care Wind Field Manager Name Role Phone Yvonne Tovar RAJAN Primary Care Provider [phone] Encounter Details Date Type Department Care Team (Latest Contact Info) Description 08/11/2025 Travel Social History Tobacco Use Types Packs/Day Years [...] with others, in a hotel, in a longterm, living outside on the street, on a [...] Description 08/19/2025 8:00 AM EST Office Visit [facility] ADULT D[facility] [address] [place] [address] Dakotah Ross, DMD [address] [place] [address] 09/15/2025 1:30 PM EST Office Visit [facility] ADULT DENTAL [address] [place] [address] Rehan Gardner, DMD [address] [place] [address] 10/06/2025 1:00 PM EST Nutrition [facility] DIABETES/NUTRITION [address] [place] [address] Silva Lawson, RD [address] [place] [address] 01/11/2026 1:30 PM EDT Office Visit [facility] ADULT DENTAL [address] [place] [address] Any Blue documented as of this encounter Visit Diagnoses Not on filedocumented in this encounter Additional Health Concerns Assessment Noted Time PHQ-9 Depression Total Score: 4 08/05/20 24 2:52 PM EST documented as of this encounter Care Teams Wind Field Manager Relationship Specialty Start Date End Date Yvonne Tovar NP [address] [place] [address] PCP - General Family Medicine 08/05/24 documented as of this encounter
--- OUTSIDE RECORDS SUMMARY | 2025-08-11 10:32 | XMS_ITS | Clinical Summary ---
Author Organization [employer] Address [address] [address] [place] [address] Care Team Providers Care Electronics Engineer Name Role Phone GuyYvonne RAJAN Primary Care Provider [phone] Allergies No known active allergies Medications medroxyPROGESTERon e (Depo-Provera) 150 MG/ML injectionIndicatio ns:Encounter for Depo-Provera contraception Inject 1 mL (150 mg) into the muscle every 3 (three) months. 1 mL 3 4 Active omeprazole OTC (PriLOSEC OTC) 20 MG EC tablet Take 1 tablet (20 mg) by mouth for 14 days, then daily for 30 days more. 58 tablet 5 09/03/20 25 Active bismuth subsalicylate (Pepto Bismol) 262 MG chewable tabletIndications: High transaminase levels CHEW 2 TABLETS BEFORE BREAKFAST, BEFORE LUNCH, BEFORE EVENING MEAL AND AT BEDTIME FOR 10 DAYS 80 tablet 5 Active Omeprazole 20 MG tablet delayed-releaseInd ications:High transaminase levels Take 1 tablet (20 mg) by mouth 2 times daily for 14 days. 28 tablet 5 Active amoxicillin-clavul anate (Augmentin) 875-125 MG tablet Take 1 tablet by mouth 2 times daily. 14 tablet 5 Active acetaminophen (Tylenol) 500 MG tablet Take 2 tablets (1,000 mg) by mouth every 6 (six) hours if needed for moderate pain or fever for up to 25 doses. 50 tablet 5 Active ibuprofen 400 MG tablet Take 1 tablet (400 mg) by mouth every 6 (six) hours if needed for moderate pain or fever for up to 30 doses. 30 tablet 5 Active clarithromycin (Biaxin) 500 MG tablet Take 1 tablet (500 mg) by mouth 2 times daily for 14 days. 28 tablet 5 07/19/20 bismuth subsalicylate (Pepto-Bismol) 262 MG chewable tabletIndications: High transaminase levels Chew 2 tablets (524 mg) before breakfast, before lunch, before evening meal, and at bedtime for 10 days. 80 tablet 5 07/17/20 metroNIDAZOLE (Flagyl) 500 MG tabletIndications: High transaminase levels Take 1 tablet (500 mg) by mouth 3 times daily for 14 days. 42 tablet 5 07/21/20 tetracycline 500 MG capsuleIndications :High transaminase levels Take 1 capsule (500 mg) by mouth 4 times daily for 14 days. 56 capsule 5 07/21/20 Hospital, Clinic, or Other Facility Administered Medication Ordered Dose Route Frequency Start Date End Date Status medroxyPROGESTERone (Depo-Provera) injection 150 mgIndications:Encounte r for Depo-Provera contraception 150 mg IM Every 3 months 11/04/2024 10/30/2025 Active medroxyPROGESTERone (Depo-Provera) injection 150 mgIndications:Encounte r for Depo-Provera contraception 150 mg IM Every 3 months 11/04/2024 01/28/2026 Active Active Problems Problem Noted Date Diagnosed Date H. pylori infection 08/11/2025 High transaminase levels 06/16/2025 Assessment & Plan [...] including risk of osteoporosis and meningioma with half-way use. As well as side effects such [...] Encounters Date Type Department Care Team Description 08/11/2025 9:00 AM EST Office Visit [facility] [address] [address] Vaginal discharge (Primary Dx); Dysuria; Acute bilateral back pain, unspecified back location; Vaginal itching 08/11/2025 Travel 07/13/2025 12:45 PM EST Office Visit [facility] [address] [place] [address] Any Blue Dental calculus (Primary Dx) 07/07/2025 10:30 AM EDT Immunization [address] [address] Encounter for immunization 07/07/2025 Orders Only [address] [address] Yvonne Tovar NP High transaminase levels 07/07/2025 Travel 07/06/[address] [address] Yvonne Tovar NP High transaminase levels 07/01/2025 1:15 PM EDT Office Visit [facility]ULT [facility] [address] [place], [place] [phone] Dakotah Ross, NOREEN 06/25/2025 Results Follow-Up [address] [address] Carey Gan MD Hepatitis Panel, General, Hepatic Function Panel, Gamma Glutamyl Transferase (GGT), Helicobacter pylori Antigen, EIA, Stool 06/16/2025 3:40 PM EDT Office Visit [facility] [address] [address] Carey Gan MD High transaminase levels (Primary Dx); Gastroesophageal reflux disease, unspecified whether esophagitis present; Acanthosis nigricans; Dark stools; Non-cardiac chest pain; Gastroesophageal reflux disease, unspecified whether esophagitis present 06/16/2025 Travel 06/11/2025 1:30 PM EDT Office Visit [facility] [address] [place] [address] Any Blue from Last 3 Months Immunizations Immunization Administration Dates Next Due Hep A, Adult 07/07/2025 Social History Tobacco Use Types Packs/Day Years [...] with others, in a hotel, in a chcf, living outside on the street, on a [...] (131 lb) 08/11/2025 9:03 AM EST Height 147.3 cm (4' 10 ) 06/16/2025 3:47 PM EDT Body Mass Index 27.38 06/16/2025 3:47 PM EDT Plan of Treatment Upcoming Encounters Date Type Department Care Team (Late st Contact Info) Description 08/19/2025 8:00 AM EST Office Visit [facility] ADULT [facility] [address] [place] [address] Dakotah Ross, DMD [address] [place] [address] 09/15/2025 1:30 PM EST Office Visit [facility] [address] [place] [address] Rehan Gardner, DMD [address] [place] [address] 10/06/2025 1:00 PM EST Nutrition [facility]/NUTRITION [address] [place] [address] Silva Lawson, RD [address] [place] [address] 01/11/2026 1:30 PM EDT Office Visit [facility] [address] [place] [address] Any Blue Health Maintenance Due Date Last Done Comments Alcohol/Substance Use Screening 2012 Family Planning (PISQ) 01/14/2015 HPV Vaccines (1 - 3-dose series) 01/14/2015 DTaP/Tdap/Td Vaccines (1 - Tdap) 01/14/2019 Hepatitis B Vaccines (1 of 3 - 19+ 3-dose series) 01/14/2019 Pap Smear 01/14/2021 COVID-19 Vaccine (1 - 2024-2 6 season) 2025 Influenza Vaccine (#1) 2025 SDOH Screening 07/29/2025 07/29/2024 Depression Screening 08/05/2025 08/05/2024, 08/05/2024 Dental Oral Exam 12/11/2025 06/11/2025 Dental Prophylaxis 01/11/2026 07/13/2025 Disability Screening 03/30/2026 03/30/2025 Dental X-Ray: Bitewings 06/12/2026 06/11/2025 Tobacco Screening 08/11/2026 08/11/2025 Dental X-Ray: Full Mouth 07/02/2028 025, 06/11/2025 Zoster Vaccines (1 of 2) 01/14/2050 RSV Patients and Patients Aged 60 years or older (1 - 1-dose 75+ series) 01/14/2075 HIV Screening Completed 08/05/2024 Hepatitis C Screening Completed 06/23/2025 , 08/05/2024 Hepatitis A Vaccines Aged Out 07/07/2025 No long er eligible based on patient's age to complete this topic HIB Vaccines Aged Out No longer eligi [...] Routine 08/11/2025 9:38 AM EST Vaginal itching ORAL HYGIENE INSTRUCTIONS Routine 07/13/2025 12:45 PM EST Dental calculus CASE PRESENTATION, DETAILED AND EXTENSIVE TREATMENT PLANNING Routine 07/13/2025 12:45 PM EST PROPHYLAXIS - ADULT Routine 07/13/2025 1 2:45 PM EST Dental calculus PANORAMIC RADIOGRAPHIC IMAGE Routine 07/01/2025 1:15 PM EDT CONSULTATION - DIAGNOSTIC SERVICE PROVIDED BY DENTIST OR PHYSICIAN OTHER THAN REQUESTING DENTIST OR PHYSICIAN Routine 07/01/2025 1:15 PM EDT HELICOBACTER PYLORI AG, EIA, STOOL Routine 06/30/2025 11:00 AM EDT Gastroesophageal reflux disease, unspecified whether esophagitis present GGT Routine 06/23/2025 1:24 PM EDT Gastroesophageal reflux disease, unspecified whether esophagitis present HEPATIC FUNCTION PANEL Routine 1:24 PM EDT Gastroesophageal reflux disease, unspecified [...] PM EDT 12 O COMPOSITE FILLING Routine 12:00 AM EDT 14 O COMPOSITE FILLING Routine 12:00 AM EDT 20 DO COMPOSITE FILLING [...] PM EDT Skin change AN (acanthosis nigricans) HIV 1/2 ANTIGEN/ANTIBODY, FOURTH GENERATION W/RFL Routine 08/05/2024 3:01 PM EST Encounter for screening examination for sexually transmitted disease from Last 3 Months or Most Recently Relevant to Health Maintenance Results * (ABNORMAL) POCT urinalysis dipstick manually resulted (CPT 99018) (08/11/2025 9:38 AM EST) Color, UA Yellow [...] Urine (Urine, Random) 08/11/2025 9:38 AM EST Rex Oliveira MD POINT OF CARE TEST ENTER/EDIT OR DERABLES Final Result * (ABNORMAL) Helicobacter pylori??Antigen, EIA, Stool (06/30/2025 11:00 AM EDT) H pylori Ag Stool SEE NOTE(A) [facility] Comment:HELICOBACTER PYLORI AG, EIA, STOOL Micro Number: [id number] Test Status: Final Specimen Source: Stool Specimen Quality: Adequate H.pylori Ag: Detected Reference Range: Not DetectedTHIS TEST WAS PERFORMED AT:[id number] [place] [id number] MIGUEL LOVE MD Stool Rectal contents / Unknown 06/30/2025 11:00 AM EDT 06/30/2025 4:46 PM EDT Carey Gan MD LAB BODY FLUIDS AND STOO LS ORDERABLES Final Result Performing Organization Address [facility]/ZIP Co de Phone Number [facility] [address] [place] [phone] * Hepatitis Panel, General (06/23/2025 1:24 PM EDT) Hepatitis A IgM Nonreactive Nonreactive [facility] Comment:IgM antibodies to NEUMANN V not detected; does not exclude earlyacute or recovered HAV infection. ~Hepatitis B Surface Antibody REACTIVE Nonreactive [facility] Comment:REACTIVE: > 11.99 mI U/mL Hepatitis B Core Antibody Nonreactive Nonreactive [facility] Hepatitis C Antibody Nonreactive Nonreactive [facility] Comment:Antibodies to HCV no t detected; does not exclude early acuteHCV infection. Hepatitis B Surface Ag Negative Negative [facility] Blood 06/23/2025 1:24 PM EDT 06/23/2025 4:15 PM EDT us Carey Gan MD LAB BLOOD ORDERABLES Fin al Result Performing Organization Address [facility] Co de Phone Number [facility] [address] [place] [phone] * Gamma Glutamyl Transferase (GGT) (06/23/2025 1:24 PM EDT) Pathologist [facility] Gamma Glutamyl Transpeptidase 33 7 - 33 U/L [facility] Blood Venous blood specimen / Unknown 06/23/2025 1:24 PM EDT 06/23/2025 4:15 PM EDT us Carey Gan MD LAB BLOOD ORDERABLES Fin al Result Performing Organization Address [facility] Co de Phone Number [facility] [address] [place] [phone] * (ABNORMAL) Hepatic Function Panel (06/23/2025 1:24 PM EDT) Pathologist [facility] Bilirubin, Total 0.4 0.0 - 1.0 mg/dL [facility] Bilirubin, Direct 0.2 0.0 - 0.5 mg/dL [facility] Aspartate Amino Transferase 49(H) 5 - 31 U/L [facility] Alanine Aminotransferase 79(H) 0 - 31 U/L [facility] Total Protein 7.5 6.5 - 8.0 g/dL [facility] Albumin Level 4.6 3.5 - 5.0 g/dL [facility] Alkaline Phosphatase 83 39 - 117 U/L [facility] Blood Venous blood specimen / Unknown 06/23/2025 1:24 PM EDT 06/23/2025 4:15 PM EDT us Carey Gan MD LAB BLOOD ORDERABLES Fin al Result [facility] [address] [place] [phone] * CBC auto differential (06/09/2025 1:23 PM EDT) White Blood Count 7.6 4.8 - 10.8 X10*3/uL [facility] Red Blood Count 4.65 4.20 - 5.50 X10*6/uL [facility] Hemoglobin 12.7 12.0 - 16.0 g/dl [facility] Hematocrit 39.2 37.0 - 47.0 % [facility] Mean Corpuscular Volume 84.3 80.0 - 98.0 fL [facility] Mean Corpuscular Hemoglobin 27.3 27.0 - 33.0 pg [facility] Mean Corpuscular HGB Conc 32.4 31.0 - 35.0 g/dl [facility] Red Cell Distribution Width 14.3 11.0 - 16.0 % [facility] Platelet Count 193 160 - 400 X10*3/uL [facility] Mean Platelet Volume 12.0 9.4 - 12.3 fL [facility] Neutrophils Percent Auto 50.4 45 - 73 % [facility] Imm Gran Pct Auto 0.3 0.0 - 0.4 % [facility] Lymphocytes Percent Auto 38.2 20 - 40 % [facility] Monocytes Percent Auto 8.5 2 - 11 % [facility] Eosinophils Percent Auto 2.2 0 - 4 % [facility] Basophils Percent Auto 0.4 0 - 2 % [facility] NRBC Pct Auto 0.0 0.0 - 0.2 /100WBC [facility] Neutrophils Absolute Auto 3.8 2.0 - 8.3 x10*3/uL [facility] Imm Gran Abs Auto 0.02 0.00 - 0.03 X10*3/uL [facility] Lymphocytes Absolute Auto 2.9 1.2 - 4.9 X10*3/uL [facility] Monocytes Absolute Auto 0.7 0.1 - 1.2 X10*3/uL [facility] Eosinophils Absolute Auto 0.2 0.0 - 0.4 X10*3/uL [facility] Basophils Absolute Auto 0.0 0.0 - 0.2 X10*3/uL [facility] NRBC Abs Auto 0.000 0.0 - 0.012 X10*3/uL [facility] Blood Venous blood specimen / Unknown 06/09/2025 1:23 PM EDT 06/09/2025 4:22 PM EDT us Hugh Name LAB BLOOD ORDERABLES Final Resul t [facility] [address] [place] [phone] * Hemoglobin A1c (06/09/2025 1:23 PM EDT) Hemoglobin A1c 5.4 <6.0 % [facility] Comment:Hemoglobin A1C Refer ence Range Adults: 4.8 - 6.0 % Non diabetic: < 6.0 % Goal: < 7.0 %Additional Action Suggested: > 8.0 %Note: Hemoglobin A1c results are invalid for patients with abnormal amounts of HbF. Blood transfusions may impact the HbA1c concentration in the patient sample. Estimated Average Glucose 108 mg/dL [facility] Comment:eAG = Estimated ave rage glucose which is %A1C expressed asaverage glucose, using the formula of the M3I-KjeotbmBweygio Glucose study (ADAG), Diabetes Care, Vol.31,#8,2007 Blood Venous blood specimen / Unknown 06/09/2025 1:23 PM EDT 06/09/2025 4:22 PM EDT us Yvonne Tovar NP LAB BLOOD ORDERABLES Final Resul t Performing Organization Address [facility]/ZIP Co de Phone Number [facility] [address] [place] [address] [phone] * Ferritin (06/09/2025 1:23 PM EDT) Ferritin 20 10 - 122 ng/mL [facility] Blood Venous blood specimen / Unknown 06/09/2025 1:23 PM EDT 06/09/2025 4:22 PM EDT us Hugh Theodore MD LAB BLOOD ORDERABLES Final Resul t Performing Organization Address [facility] Co de Phone Number [facility] [address] [place] [phone] * (ABNORMAL) Comprehensive Metabolic Panel (06/09/2025 1:23 PM EDT) Sodium 144 135 - 145 mmol/L [facility] Potassium 3.4 3.3 - 5.1 mmol/L [facility] Chloride 111(H) 96 - 108 mmol/L [facility] Carbon Dioxide 24 22 - 29 mmol/L [facility] Anion Gap 12 12 - 20 [facility] Urea Nitrogen (BUN) 16 9 - 16 mg/dL [facility] Creatinine, Serum 0.79 0.5 - 1.4 mg/dL [facility] Estimated Glomerular Filt Rate >60 [facility] Comment:Chronic Kidney Disea se: Estimated GFR < 60 mL/min/1.22p5Teztox Kidney Disease: Estimated GFR < 15 mL/min/1.73m2 Glucose 81 60 - 115 mg/dL [facility] Calcium 8.7 8.4 - 10.2 mg/dL [facility] Bilirubin, Total 0.3 0.0 - 1.0 mg/dL [facility] Aspartate Amino Transferase 45(H) 5 - 31 U/L [facility] Alanine Aminotransferase 80(H) 0 - 31 U/L [facility] Total Protein 7.4 6.5 - 8.0 g/dL [facility] Albumin Level 4.5 3.5 - 5.0 g/dL [facility] Alkaline Phosphatase 91 39 - 117 U/L [facility] Blood Venous blood specimen / Unknown 06/09/2025 1:23 PM EDT 06/09/2025 4:22 PM EDT Yvonne Tovar EQUIPMENT MONITOR [employer]OTOTYP[employer]ETTING LAB BLOOD ORDERABLES Final Resul t [facility] [address] [place] [phone] * HIV-1/2 Antigen and Antibodies, Fourth Generation, with Reflexes (08/05/2024 3:01 PM EST) HIV AB/AG Nonreactive Nonreactive [facility] Comment:HIV-1 p24 Ag and/or HIV-1/HIV-2 Ab not detected.A test result that is nonreactive does not exclude thepossibility of exposure to or infection with HIV-1 and/orHIV-2. Nonreactive results in this assay for individualswith prior exposure to HIV-1 and/or HIV-2 may be due toantigen and antibody levels that are below the limit ofdetection of this assay.The [employer] HIV Ag/Ab Combo assay result andsupplemental assay results should be interpreted inconjunction with the patient's clinical presentation,history and other laboratory results. If the results areinconsistent with clinical evidence, additional testing issuggested to confirm the result. Blood Venous blood specimen / Unknown 08/05/2024 3:01 PM EST 08/05/2024 4:09 PM EST Stephanie ASHLEY LAB BLOOD ORDERABLES Dana stephanie Result [facility] [address] [place] [phone] from Last 3 Months or Most Recently Relevant to Health Maintenance Insurance [employer] HSN FULL DENTAL - [facility]SN FULL (MEDICAID) [facility] AD[facility] Care Teams Electronics Engineer Relationship Specialty Start Date End Date Yvonne Tovar NP [address] [place] [phone] PCP - General Family Medicine 08/05/24
[2025-08-11 11:57] LABS: Anion Gap 12 (12-20); Blood Urea Nitrogen 12 mg/dL (9-16); Calcium 8.9 mg/dL (8.4-10.2); Carbon Dioxide 25 mmol/L (22-29); Chloride 109 mmol/L (96-108); Estimated Glomerular Filt Rate > 60; Potassium 3.5 mmol/L (3.3-5.1); Sodium 142 mmol/L (135-145)
[2025-08-11 16:12] LABS: Bacterial Vaginosis PCR NEGATIVE (Negative); Candida Group PCR DETECTED (Not Detect); Candida glab krusei PCR NOT DETECTED (Not Detect); Trichomonas vaginalis PCR NOT DETECTED (Not Detect)
[2025-08-11 16:42] LABS: CT PCR NOT DETECTED (Not Detect.); NG PCR NOT DETECTED (Not Detect.)
== END 2025-08-11 09:38 | disposition home or self-care (01) ==
LOC: HO.HHCL 09:37
PROVIDERS: PCP Nurse Practitioner Family; Visit Provider Emergency Medicine
DX: Z20.2 Contact with and (suspected) exposure to infections with a predominantly sexual mode of transmission (principal); N89.8 Other specified noninflammatory disorders of vagina; R30.0 Dysuria
CPT/HCPCS: 36415; 80048; 81515; 84702; 87086; 87088; 87186; 87491; 87591